=== PATIENT | male | born 1965 | race Caucasian/White ===

== ENCOUNTER 2021-10-26 22:11 | Emergency (ER) | payer SELFPAY ==
[~2021-10-26] VITALS: Ht 185.4 cm; Wt 93.6 kg
[2021-10-26 22:13] VITALS: BP 162/96
--- OUTSIDE RECORDS SUMMARY | 2021-10-26 22:16 | XMS REPORT | Clinical Summary ---
Author Author [facility] Organization [facility] Address Unknown Phone Unavailable Care Team Providers Care Steam Drier Tender Name Role Phone Lanette Newman RN Unavailable Unavailable Sb Gonzalez RN Unavailable Unavailable Eduardo Berger MD Unavailable Lai Walters MD Unavailable Gillian Ann DO [phone] Gillian Ann DO PCP Source Comments Some departments are not documenting in the electronic medical record. If you d o not see the information that you expected, contact Release of Information in [facility] Health Information Management department at [phone] for further assistan ce in locating additional records.[facility] Allergies No known active allergies Medications End Date Status Medication Sig Dispensed Refills Start Date Active SYMBICORT 160-4.5 1 mcg/actuation inhalation 9 Active VENTOLIN HFA 90 1 mcg/actuation inhaler 9 Active cholecalciferol (VITAMIN Take 1,000 0 D-3) 1,000 units tablet Units by mouth daily. Active aspirin 81 mg chewable Chew one 90 tablet 0 tabletIndications: tablet by 0 Healthcare maintenance, mouth daily. Other chest pain Take with food. Active montelukast (SINGULAIR) Take one 90 tablet 1 10 mg tablet tablet by 0 mouth at bedtime daily. Active atorvastatin (LIPITOR) 10 Take 1 tablet 90 tablet 0 mg tablet by mouth once 0 daily Active Problems Problem Noted Date Precordial pain 12/08/2019 Last Assessment & Plan: Formatting of this note might be differ ent from the original. His symptoms are not highly suggestive of cardiac ischemia but he does have risk factors and it seems certainly ana sonable to recommend a stress test. Given the frequent PVCs on the EKG yest lety I recommended the addition of an echocardiogram to more accurately as sess for any structural cardiac abnormalities. Mixed hyperlipidemia 12/08/2019 Last Assessment & Plan: Formatting of this note is different fr om the original. Lab Results Component Value Date CHOL 207 (H) 11/25/2019 TRIG 146 11/25/2019 HDL 40 (L) 11/25/2019 LDL 150 (H) 11/25/2019 VLDL 29 11/25/2019 NONHDLCHOL 167 11/25/2019 He was started on atorvastatin after lab work was done. Personal history of tobacco use 12/08/2019 Lipoma of back 04/18/2019 Immunizations Name Administration Dates Next Due Flu Vaccine =>6 Months 11/25/2019 Quadrivalent PF MMR Vaccine 03/03/1979 OPV 08/19/1979, 05/26/1977 Td Vaccine 08/19/1979, 05/26/1977 Tdap Vaccine 11/25/2019 Zoster Vaccine 11/25/2019 Recombinant, Adjuvanted (shingles) IM (vial 2 of 2)(SHINGRIX) Zoster Vaccine 11/25/2019 Recombinant, adjuvant suspension component (vial 1 of 2)(SHINGRIX) Surgical History Surgery Date Site/Laterality Comments TUMOR EXCISION 04/05/2019 Back/N/A EXCISION SUBCUT ANEOUS SOFT TISSUE TUMOR BACK - 3 CM OR MORE performed by Hayden [facility]id [facility] WOUND REPAIR 04/05/2019 Back/N/A REPAIR COMPLEX WOUND 2.6 CM TO 7.5 CM - TORSO performed by Anthony Rashid MD at [facility] Medical History Medical History Date Comments Arthritis Asthma Seasonal allergies Mixed hyperlipidemia 12/08/2019 Family History Medical History Relation Name Comments Cancer-Colon Father Diabetes Father Stroke Father Arthritis Mother Asthma Sister Relation Name Status Comments Father Mother Sister Social History Date Tobacco Use Types Packs/Day Years Used Quit: 12/02/2010 Former Smoker 3 32 Smokeless Tobacco: Former User Comments: 2-3 packs per day since age 13 . Quit 2010 Comments Alcohol Use Standard Drinks/Week No 0 (1 standard drink = 0.6 o z pure alcohol) Sex Assigned at Date Recorded Not on file Last Filed Vital Signs Reading Time Taken Comments Vital Sign 128/86 12/16/2019 11:07 AM PHYSICAL SECURITY ENGINEER Blood Pressure 82 12/09/2019 3:27 PM PHYSICAL SECURITY ENGINEER Pulse 36.3 C (97.4 F) 04/05/2019 9:45 AM CDT Temperature 16 11/25/2019 1:02 PM PHYSICAL SECURITY ENGINEER Respiratory Rate 97% 12/09/2019 3:27 PM PHYSICAL SECURITY ENGINEER Oxygen Saturation - - Inhaled Oxygen Concentration 99.3 kg (218 lb 14.7 oz) 12/16/2019 11:07 AM PHYSICAL SECURITY ENGINEER Weight 182.9 cm (6') 12/16/2019 11:07 AM PHYSICAL SECURITY ENGINEER Height 29.69 12/16/2019 11:07 AM PHYSICAL SECURITY ENGINEER Body Mass Index Plan of Treatment Health Maintenance Due Date Last Done Comments COLORECTAL CANCER 2014 SCREENING LUNG CANCER SCREENING 2019 SHINGLES RECOMBINANT 01/20/2020 11/25/2019 VACCINE (2 of 2) PHYSICAL (COMPREHENSIVE) 11/25/2020 11/25/2019, EXAM 11/25/2019 INFLUENZA VACCINE 05/26/2021 11/25/2019 DTAP/TDAP VACCINES (4 - 11/25/2029 11/25/2019, Td or Tdap) 08/19/1979, 05/26/1977 HEPATITIS C SCREENING Completed 11/25/2019 HIV SCREENING Completed 11/25/2019 Results Not on filefrom Last 3 Months Additional Health Concerns Onset Date Last Indicated Infection 10/10/2008 10/10/2008 MRSA Comment: MRSA in knee abscess 09/2008. Insurance Type Payer Benefit Subscriber ID Effective Phone Address Plan / Dates Group Indemnity [facility] [id number] 2020-P [phone] CHOICE/CHO resent ICE PLUS 66 05 [employer] Workers Self 1965 [address] (Home) [place], [place] 66 05 Advance Directives Patient Errand Runner Explanation Type Date Recorded Advance 01/09/2018 11:05 PM Directive/DPOA Care Teams Start Date End Date Steam Drier Tender Relationship Specialty 04/23/21 Gillian Ann DO PCP - [facility] [address] [place] [address] 08/26/10 Lanette Newman, THADDEUS 08/26/10 Sb Gonzalez RN 08/26/10 [place] [id number] [facility] Med Office Bld MARY ANN [address] [place] [address] 11/18/13 Lai Walters MD Emergency [address] [facility] [place] [address] 04/23/21 Gillian Ann DO CCP - Family [address] [place] [address] Care Provider
--- NOTE | 2021-10-26 22:20 | ED Dyspnea ---
General Stated Complaint: SOA History of Present Illness Date Seen by Provider: Oct 26, 2021 Time Seen by Provider: 22:14 Initial Comments 56-year-old male presents with some shortness of breath and chest tightness. Patient reports he has a history of asthma. That yesterday he started "feeling the shortness of breath coming on" the development of a runny nose. He denies any increased cough. He has inhaler that he used about 10 minutes prior to arrival. He denies any fever, chills, nausea or vomiting. Patient reports he is fully vaccinated for Covid. Patient reports that he is not sure how old his inhaler is and does not have a local physician Allergies and Home Medications Allergies Coded Allergies: No Known Drug Allergies (Unverified , 10/26/21) Patient Home Medication List Home Medication List Reviewed: Yes Review of Systems Review of Systems Constitutional: No chills, No fever Respiratory: short of breath, wheezing Cardiovascular: No chest pain, No palpitations Genitourinary: no symptoms reported Musculoskeletal: no symptoms reported Skin: no symptoms reported Psychiatric/Neurological: No Symptoms Reported Endocrine: No Symptoms Reported Physical Exam Vital Signs Vital Signs - First Documented 10/26/21 22:13 Temp 37.2 Pulse 87 Resp 20 B/P (MAP) 162/96 (118) Pulse Ox 94 O2 Delivery Room Air Capillary Refill : Height, Weight, BMI Height: '" Weight: lbs. oz. kg; BMI Method: General Appearance: No Apparent Distress Respiratory: No Accessory Muscle Use, No Respiratory Distress, Wheezing (very mild, occasional ) Cardiovascular: Regular Rate, Rhythm, No Edema Gastrointestinal: Non Tender, Soft Extremity: Normal Capillary Refill, Normal Inspection, Normal Range of Motion Neurologic/Psychiatric: Alert, Oriented x3, No Motor/Sensory Deficits Skin: Normal Color, Warm/Dry Progress/Results/Core Measures Results/Orders Lab Results Laboratory Tests Test 10/26/21 22:24 Range/Units White Blood Count 9.6 4.3-11.0 10^3/uL Red Blood Count 5.23 4.30-5.52 10^6/uL Hemoglobin 15.6 13.3-17.7 g/dL Hematocrit 47 40-54 % Mean Corpuscular Volume 90 80-99 fL Mean Corpuscular Hemoglobin 30 25-34 pg Mean Corpuscular Hemoglobin Concent 33 32-36 g/dL Red Cell Distribution Width 12.3 10.0-14.5 % Platelet Count 211 130-400 10^3/uL Mean Platelet Volume 10.6 9.0-12.2 fL Immature Granulocyte % (Auto) 0 % Neutrophils (%) (Auto) 65 42-75 % Lymphocytes (%) (Auto) 16 12-44 % Monocytes (%) (Auto) 13 H 0-12 % Eosinophils (%) (Auto) 5 0-10 % Basophils (%) (Auto) 1 0-10 % Neutrophils # (Auto) 6.3 1.8-7.8 X 10^3 Lymphocytes # (Auto) 1.5 1.0-4.0 X 10^3 Monocytes # (Auto) 1.3 H 0.0-1.0 X 10^3 Eosinophils # (Auto) 0.4 H 0.0-0.3 10^3/uL Basophils # (Auto) 0.1 0.0-0.1 10^3/uL Immature Granulocyte # (Auto) 0.0 0.0-0.1 10^3/uL Sodium Level 140 135-145 MMOL/L Potassium Level 3.6 3.6-5.0 MMOL/L Chloride Level 104 98-107 MMOL/L Carbon Dioxide Level 25 21-32 MMOL/L Anion Gap 11 5-14 MMOL/L Blood Urea Nitrogen 15 7-18 MG/DL Creatinine 0.98 0.60-1.30 MG/DL Estimat Glomerular Filtration Rate 79 BUN/Creatinine Ratio 15 Glucose Level 104 70-105 MG/DL Calcium Level 9.1 8.5-10.1 MG/DL Corrected Calcium 9.0 8.5-10.1 MG/DL Total Bilirubin 0.4 0.1-1.0 MG/DL Aspartate Amino Transf (AST/SGOT) 17 5-34 U/L Alanine Aminotransferase (ALT/SGPT) 21 0-55 U/L Alkaline Phosphatase 66 40-136 U/L C-Reactive Protein 1.25 H <0.50 MG/DL Total Protein 7.4 6.4-8.2 GM/DL Albumin 4.1 3.2-4.5 GM/DL Influenza Type A Antigen NEGATIVE NEGATIVE Influenza Type B Antigen NEGATIVE NEGATIVE My Orders Orders - AYANA YATES DO Cbc With Automated Diff (10/26/21 22:21) Comprehensive Metabolic Panel (10/26/21 22:21) Crp Fs (10/26/21 22:21) Chest 1 View Ap/Pa Only (10/26/21 22:21) Coronavirus Sars-Cov-2 So 2019 (10/26/21 22:21) Influenza A & B Antigens (10/26/21 22:21) Albuterol/Ipra Inhalation Soln (Duoneb I (10/26/21 22:30) Methylprednisolone Sod Succ (Solu-Medrol (10/26/21 22:22) Svn Small Volume Nebulizer (10/26/21 22:22) Ed Iv/Invasive Line Start (10/26/21 22:36) Medications Given in ED Current Medications Medications Dose Ordered Sig/Toño Route Start Time Stop Time Status Last Admin Dose Admin Albuterol/ Ipratropium 3 ml ONCE ONCE INH 10/26/21 22:30 10/26/21 22:31 DC 10/26/21 22:27 3 ML Vital Signs/I&O 10/26/21 22:13 Temp 37.2 Pulse 87 Resp 20 B/P (MAP) 162/96 (118) Pulse Ox 94 O2 Delivery Room Air Progress Progress Note : Progress Note Patient was feeling better following breathing treatment. Patient with no acute findings on labs, his Covid test is still pending. His x-ray does not show any acute abnormalities. Patient likely with asthma exacerbation with a viral illness. I will give him a couple days of prednisone, albuterol and Pulmicort. He should establish care with a primary care provider for further outpatient management of his asthma. Departure Impression Primary Impression: Asthma Qualified Codes: J45.909 - Unspecified asthma, uncomplicated Additional Impression: Viral upper respiratory tract infection Disposition: 01 HOME, SELF-CARE Condition: Stable Departure-Patient Inst. Referrals: NO,LOCAL PHYSICIAN (PCP/Family) Primary Care Physician Patient Instructions: Asthma, Adult ED, Viral Upper Respiratory Infection, Adult (DC) Add. Discharge Instructions: Please establish care with a primary care provider for management of your asthma Use your new prescribed albuterol inhaler every 4 hours tomorrow while awake then as needed Scripts Budesonide (Pulmicort Flexhaler) 180 Mcg Aer.pow.ba 2 PUFF IH BID, #1 EA Prov: AYANA YATES DO 10/26/21 Prednisone (Prednisone) 20 Mg Tab 40 MG PO DAILY, #6 TAB 0 Refills Prov: AYANA YATES DO 10/26/21 Albuterol Sulfate (Proventil Hfa) 6.7 Gm Hfa.aer.ad 2 PUFF INH Q6H for SHORTNESS OF BREATH, #1 EACH Prov: AYANA YATES DO 10/26/21 AYANA YATES DO Oct 26, 2021 22:20
[2021-10-26] MEDS ORDERED: methylPREDNISolone 125 MG (Solu-MEDROL) VIAL IV STA (22:22)
[2021-10-26 22:29] LABS: HEMATOCRIT 47 % (40-54); HEMOGLOBIN 15.6 g/dL (13.3-17.7); MEAN CORPUSCULAR HEMOGLOBIN 30 pg (25-34); MEAN CORPUSCULAR HGB CONC 33 g/dL (32-36); MEAN CORPUSCULAR VOLUME 90 fL (80-99); WHITE BLOOD COUNT 9.6 10^3/uL (4.3-11.0)
[2021-10-26 22:30] LABS: BASOPHILS # (AUTO) 0.1 10^3/uL (0.0-0.1); BASOPHILS % (AUTO) 1 % (0-10); EOSINOPHILS # (AUTO) 0.4 10^3/uL (0.0-0.3); EOSINOPHILS % (AUTO) 5 % (0-10); LYMPHOCYTES # (AUTO) 1.5 X 10^3 (1.0-4.0); LYMPHOCYTES % (AUTO) 16 % (12-44); MEAN PLATELET VOLUME 10.6 fL (9.0-12.2); MONOCYTES # (AUTO) 1.3 X 10^3 (0.0-1.0); MONOCYTES % (AUTO) 13 % (0-12); NEUTROPHILS # (AUTO) 6.3 X 10^3 (1.8-7.8); NEUTROPHILS % (AUTO) 65 % (42-75); PLATELET COUNT 211 10^3/uL (130-400)
[2021-10-26] MEDS ORDERED: RT-ALBUTEROL/IPRATROPIUM 3 ML (DUONEB) VIAL INH ONE (22:30)
[2021-10-26 22:44] LABS: BILIRUBIN,TOTAL 0.4 MG/DL (0.1-1.0); CALCIUM 9.1 MG/DL (8.5-10.1); CREATININE SERUM 0.98 MG/DL (0.60-1.30); POTASSIUM 3.6 MMOL/L (3.6-5.0); TOTAL PROTEIN 7.4 GM/DL (6.4-8.2)
[2021-10-26 22:45] LABS: ALBUMIN 4.1 GM/DL (3.2-4.5)
--- NOTE | 2021-10-26 22:58 | Diagnostic Imaging Report ---
HISTORY: Shortness of air. COMPARISON: None. TECHNIQUE: Frontal view of the chest. FINDINGS: Lung volumes are large. No consolidation is seen. There is no pleural effusion or pneumothorax. The cardiac silhouette is normal in size. IMPRESSION: Large lung volumes with no acute pulmonary abnormality seen. Dictated by: Dictated on workstation # [id number]
[2021-10-26] MEDS ORDERED: RT-ALBUINH INH (23:09)
[2021-10-26] MEDS ORDERED: PRD20T PO (23:09)
[2021-10-26] MEDS ORDERED: BUDE180A IH (23:09)
== END 2021-10-26 23:12 | disposition home or self-care (01) ==
LOC: ER FS 22:13
DX: J45.909 Unspecified asthma, uncomplicated (principal); J06.9 Acute upper respiratory infection, unspecified; Z20.822 Contact with and (suspected) exposure to COVID-19
CPT/HCPCS: 36415; 71045; 80053; 85025; 86141; 87635; 87804

== ENCOUNTER 2021-11-04 09:55 | Emergency (ER) | payer OTHER ==
[~2021-11-04] VITALS: Ht 185.5 cm; Wt 102.1 kg
[~2021-11-04 09:55] MED LIST: BUDE180A IH; PRD20T PO; RT-ALBUINH INH
--- NOTE | 2021-11-04 10:09 | ED Fall/Injury ---
General Stated Complaint: LT RIB INJ History of Present Illness Date Seen by Provider: Nov 04, 2021 Time Seen by Provider: 10:05 Initial Comments 56-year-old male presents with left rib injury. Patient reports he was standing there when doing a feed truck was open and took his feet out from underneath him. That he fell onto the auger. He landed on his left ribs. He also complains of some left hand tenderness. He has some mild abrasions on the left hand. Happened approximately 45 minutes to an hour prior to arrival. He reports he has pain with inspiration and is hard to take a deep breath. He denies any other injury Allergies and Home Medications Allergies Coded Allergies: No Known Drug Allergies (Unverified , 10/26/21) Patient Home Medication List Home Medication List Reviewed: Yes Albuterol Sulfate (Proventil Hfa) 6.7 Gm Hfa.aer.ad, 2 PUFF INH Q6H Prescribed by: AYANA YATES on 10/26/212308 Budesonide (Pulmicort Flexhaler) 180 Mcg Aer.pow.ba, 2 PUFF IH BID Prescribed by: AYANA YATES on 10/26/212308 Prednisone (Prednisone) 20 Mg Tab, 40 MG PO DAILY Prescribed by: AYANA YATES on 10/26/212308 Review of Systems Review of Systems Constitutional: No chills, No fever Ears, Nose, Mouth, Throat: no symptoms reported Respiratory: see HPI Cardiovascular: see HPI Gastrointestinal: no symptoms reported Genitourinary: no symptoms reported Musculoskeletal: see HPI Skin: see HPI Psychiatric/Neurological: No Symptoms Reported Past [id number] Hx Past Medical History Surgery/Hospitalization HX: Asthma Physical Exam Vital Signs Vital Signs - First Documented 11/04/21 10:00 Temp 36.9 Pulse 89 Resp 19 B/P (MAP) 180/120 (140) O2 Delivery Room Air Capillary Refill : Height, Weight, BMI Height: '" Weight: lbs. oz. kg; 27.00 BMI Method: General Appearance: mild distress HEENT: PERRL/EOMI Neck: full range of motion, supple Cardiovascular: normal peripheral pulses, regular rate, rhythm Respiratory: normal breath sounds, no respiratory distress, no accessory muscle use, other (Chest wall tenderness left lateral ribs) Gastrointestinal: non tender, no organomegaly Back: normal inspection Extremities: other (Mild tenderness to left hand but full range of motion) Neurologic/Psychiatric: survey technician II-XII nml as tested, alert, normal mood/affect, oriented x 3 Skin: other (Small abrasion left hand) Bonita Coma Score Best Eye Response: (4) Open Spontaneously Best Verbal Response: (5) Oriented Best Motor Response: (6) Obeys Commands Progress/Results/Core Measures Results/Orders My Orders Orders - TRUDYAYANA L DO Ribs/Unilateral With Chest (11/04/21 10:14) Ketorolac Injection (Toradol Injection) (11/04/21 10:57) Orphenadrine Inj (Ed Only) (Norflex Inje (11/04/21 10:57) Vital Signs/I&O 11/04/21 10:00 Temp 36.9 Pulse 89 Resp 19 B/P (MAP) 180/120 (140) O2 Delivery Room Air Progress Progress Note : Time: 11:01 Progress Note Patient with no acute fracture noted on x-ray. Patient likely left rib contusion left hand contusion. I will prescribe him some Naprosyn and Norflex. He can return to work tomorrow and work as tolerated. Patient discharged home in stable condition Diagnostic Imaging Diagonstic Imaging: Xray Plain Films/CT/US/NM/MRI: chest Comments Date of Exam:11/04/21 RIBS/UNILATERAL WITH CHEST INDICATION: Injury with chest pain. FINDINGS: No lung contusion, pneumothorax or hemothorax. There is no free air beneath the diaphragm. Cardiomediastinal and hilar contours are unremarkable. Multiple oblique views of the left ribs performed showed no displaced rib fracture deformity or suspect cortical irregularity. IMPRESSION: No acute finding at frontal chest and left rib series. Reviewed: Reviewed by Me, Reviewed/Discussed Departure Impression Primary Impression: Contusion of rib on left side Qualified Codes: S20.212A - Contusion of left front wall of thorax, initial encounter Additional Impressions: Chest wall injury Qualified Codes: S29.9XXA - Unspecified injury of thorax, initial encounter Contusion of left hand, initial encounter Disposition: HOME, SELF-CARE Condition: Stable Departure-Patient Inst. Referrals: NO,LOCAL PHYSICIAN (PCP/Family) Primary Care Physician Patient Instructions: Minor Contusion ED, Rib Fracture or Bruised Rib ED Add. Discharge Instructions: Ice for 20 minutes every 4 hours, for 2 days. Then warm moist heat 4% topical lidocaine with menthol to affected area as directed on package Follow-up with your primary care provider in 10 days if symptoms are not improving Scripts Naproxen (Naprosyn) 500 Mg Tablet 500 MG PO BID, #30 TAB 0 Refills Prov: AYANA YATES DO 11/04/21 Cyclobenzaprine HCl (Cyclobenzaprine HCl) 10 Mg Tablet 10 MG PO Q8H PRN for SPASMS, #15 TAB 0 Refills Prov: AYANA YATES DO 11/04/21 AYANA YATES DO Nov 04, 2021 10:09
--- NOTE | 2021-11-04 10:52 | Diagnostic Imaging Report ---
INDICATION: Injury with chest pain. FINDINGS: No lung contusion, pneumothorax or hemothorax. There is no free air beneath the diaphragm. Cardiomediastinal and hilar contours are unremarkable. Multiple oblique views of the left ribs performed showed no displaced rib fracture deformity or suspect cortical irregularity. IMPRESSION: No acute finding at frontal chest and left rib series. Dictated by: Dictated on workstation # [id number]
[2021-11-04] MEDS ORDERED: KETOROLAC 30 MG/ML VIAL IM STA (10:57)
[2021-11-04] MEDS ORDERED: ORPHENADRINE 60 MG/2 ML (NORFLEX) AMP (ED ONLY) IM STA (10:57)
[2021-11-04] MEDS ORDERED: NAPR-1071 PO (11:04)
[2021-11-04] MEDS ORDERED: CYCL10TA25 PO (11:04)
[2021-11-04 11:19] VITALS: BP 144/79
== END 2021-11-04 11:19 | disposition home or self-care (01) ==
LOC: EDUNIT# 09:55 → ER FS 09:57
DX: S20.212A Contusion of left front wall of thorax, initial encounter (principal); S60.222A Contusion of left hand, initial encounter; J45.909 Unspecified asthma, uncomplicated; Z79.51 Long term (current) use of inhaled steroids; Z79.52 Long term (current) use of systemic steroids; W19.XXXA Unspecified fall, initial encounter
CPT/HCPCS: 71101

== ENCOUNTER 2021-12-12 01:35 | Observation (INO) | payer OTHER ==
[~2021-12-12] VITALS: Ht 185.5 cm; Wt 92.4 kg
[2021-12-12] VITALS (11 sets, daily range): BP systolic 114–142; BP diastolic 63–93
[~2021-12-12 01:35] MED LIST changes: +CYCL10TA25 PO; +NAPR-1071 PO
[2021-12-12] MEDS ORDERED: fentaNYL INJ 100 MCG/2 ML AMP IVP STA ×2 (01:53→02:58)
[2021-12-12] MEDS ORDERED: NS IV 1000 ML 1,000 ML IV STA (01:53)
[2021-12-12] MEDS ORDERED: ONDANSETRON 4 MG/2 ML (SDV) Z0FRAN IVP STA ×2 (01:53→05:15)
--- NOTE | 2021-12-12 02:01 | ED General ---
General Stated Complaint: SWOLLEN TESTES Source of Information: Patient History of Present Illness Date Seen by Provider: Dec 12, 2021 Time Seen by Provider: 01:41 Initial Comments 56 yo male presenting with complaints of swelling into the right scrotum and testicles since yesterday. He states that overnight it got more severe so he came to the emergency department. He did try taking 800 mg of ibuprofen about 30 minutes prior to arrival in the ED. After taking the medication with some water he got nauseated. He denies any fever or chills. He denies any trauma to his abdomen. He has had no burning pain with urination but states that sometimes he has difficulty getting his urination to start. He denies any blood in his urine. He does have pain going up into the right lower quadrant. His pain symptoms started after he had lifted an axle of a vehicle. Timing/Duration: 1 Day Severity: Severe Modifying Factors: worse with Movement Associated Systoms: No Chest Pain, No Cough, No Diaphoresis, No Fever/Chills, No Headaches, No Loss of Appetite, No Malaise; Nausea/Vomiting (nauseated tonight with severe pain and taking ibuprofen but no actual emesis prior to arrival in ED); No Seizure, No Shortness of Air, No Syncope, No Weakness Allergies and Home Medications Allergies Coded Allergies: No Known Drug Allergies (Unverified , 10/26/21) Patient Home Medication List Home Medication List Reviewed: Yes Albuterol Sulfate (Proventil Hfa) 6.7 Gm Hfa.aer.ad, 2 PUFF INH Q6H Prescribed by: AYANA YATES on 10/26/212308 Budesonide (Pulmicort Flexhaler) 180 Mcg Aer.pow.ba, 2 PUFF IH BID Prescribed by: AYANA YATES on 10/26/212308 Cyclobenzaprine HCl (Cyclobenzaprine HCl) 10 Mg Tablet, 10 MG PO Q8H PRN for SPASMS Prescribed by: AYANA YATES on 11/04/211103 Naproxen (Naprosyn) 500 Mg Tablet, 500 MG PO BID Prescribed by: AYANA YATES on 11/04/211103 Prednisone (Prednisone) 20 Mg Tab, 40 MG PO DAILY Prescribed by: AYANA YATES on 10/26/212308 Review of Systems Review of Systems Constitutional: No chills, No fever EENTM: no symptoms reported Respiratory: no symptoms reported Cardiovascular: no symptoms reported Gastrointestinal: see HPI Genitourinary: see HPI, pain (pain and swelling from RLQ into groin and right scrotum/testicle) Musculoskeletal: no symptoms reported Skin: no symptoms reported Psychiatric/Neurological: Anxiety Past Sjdytih-Rrrfxq-Cqylbd Hx Patient Social History Tobacco Use?: No Past Medical History Surgery/Hospitalization HX: Asthma Physical Exam Vital Signs Vital Signs - First Documented 12/12/21 01:45 Temp 36.6 Pulse 98 Resp 14 B/P (MAP) 131/82 (98) Pulse Ox 96 O2 Delivery Room Air Capillary Refill : Height, Weight, BMI Height: '" Weight: lbs. oz. kg; 29.00 BMI Method: General Appearance: WD/WN, Anxious, Moderate Distress HEENT: PERRL/EOMI, Pharynx Normal Neck: Full Range of Motion, Non Tender, Supple Respiratory: Chest Non Tender, No Accessory Muscle Use, Wheezing Cardiovascular: Regular Rate, Rhythm, Normal Peripheral Pulses Gastrointestinal: Normal Bowel Sounds, No Pulsatile Mass, Soft, Guarding (RLQ), Hernia (right inguinal hernia), Tenderness (RLQ) Rectal: Deferred Genital/Rectal: Tenderness (with swelling into right groin/scrotum) Back: No CVA Tenderness, No Vertebral Tenderness Extremity: Normal Capillary Refill, Normal Inspection, No Pedal Edema Neurologic/Psychiatric: Alert, Oriented x3 Skin: Normal Color, Warm/Dry; No Erythema Focused Exam Lactate Level 12/12/21 02:00: Lactic Acid Level 1.03 Lactic Acid Level Laboratory Tests Test 12/12/21 02:00 Lactic Acid Level 1.03 MMOL/L (0.50-2.00) Progress/Results/Core Measures Suspected Sepsis SIRS Temperature: Pulse: Respiratory Rate: Laboratory Tests 12/12/21 02:00: White Blood Count 14.4H Blood Pressure / Mean: 12/12/21 02:00: Lactic Acid Level 1.03 Laboratory Tests 12/12/21 02:00: Platelet Count 174 12/12/21 02:30: Creatinine 0.96, Total Bilirubin 0.5 Results/Orders Lab Results Laboratory Tests Test 12/12/21 02:00 12/12/21 02:30 12/12/21 03:17 Range/Units White Blood Count 14.4 H 4.3-11.0 10^3/uL Red Blood Count 5.12 4.30-5.52 10^6/uL Hemoglobin 15.2 13.3-17.7 g/dL Hematocrit 45 40-54 % Mean Corpuscular Volume 88 80-99 fL Mean Corpuscular Hemoglobin 30 25-34 pg Mean Corpuscular Hemoglobin Concent 34 32-36 g/dL Red Cell Distribution Width 12.3 10.0-14.5 % Platelet Count 174 130-400 10^3/uL Mean Platelet Volume 11.0 9.0-12.2 fL Immature Granulocyte % (Auto) 0 % Neutrophils (%) (Auto) 78 H 42-75 % Lymphocytes (%) (Auto) 10 L 12-44 % Monocytes (%) (Auto) 9 0-12 % Eosinophils (%) (Auto) 2 0-10 % Basophils (%) (Auto) 1 0-10 % Neutrophils # (Auto) 11.2 H 1.8-7.8 10^3/uL Lymphocytes # (Auto) 1.4 1.0-4.0 10^3/uL Monocytes # (Auto) 1.2 H 0.0-1.0 10^3/uL Eosinophils # (Auto) 0.3 0.0-0.3 10^3/uL Basophils # (Auto) 0.1 0.0-0.1 10^3/uL Immature Granulocyte # (Auto) 0.1 0.0-0.1 10^3/uL Neutrophils % (Manual) 82 % Lymphocytes % (Manual) 12 % Monocytes % (Manual) 5 % Eosinophils % (Manual) 1 % Platelet Estimate FEW GIANTS SEEN Poikilocytosis SLIGHT Anisocytosis SLIGHT Lactic Acid Level 1.03 0.50-2.00 MMOL/L Lipase 27 8-78 U/L Sodium Level 139 135-145 MMOL/L Potassium Level 3.7 3.6-5.0 MMOL/L Chloride Level 101 98-107 MMOL/L Carbon Dioxide Level 24 21-32 MMOL/L Anion Gap 14 5-14 MMOL/L Blood Urea Nitrogen 19 H 7-18 MG/DL Creatinine 0.96 0.60-1.30 MG/DL Estimat Glomerular Filtration Rate 92 BUN/Creatinine Ratio 20 Glucose Level 124 H 70-105 MG/DL Calcium Level 8.8 8.5-10.1 MG/DL Corrected Calcium 8.7 8.5-10.1 MG/DL Total Bilirubin 0.5 0.1-1.0 MG/DL Aspartate Amino Transf (AST/SGOT) 20 5-34 U/L Alanine Aminotransferase (ALT/SGPT) 24 0-55 U/L Alkaline Phosphatase 69 40-136 U/L Total Protein 7.1 6.4-8.2 GM/DL Albumin 4.1 3.2-4.5 GM/DL Urine Color YELLOW Urine Clarity CLEAR Urine pH 7.0 5-9 Urine Specific [place] 1.010 L 1.016-1.022 Urine Protein NEGATIVE NEGATIVE Urine Glucose (UA) NEGATIVE NEGATIVE Urine Ketones NEGATIVE NEGATIVE Urine Nitrite NEGATIVE NEGATIVE Urine Bilirubin NEGATIVE NEGATIVE Urine Urobilinogen 2.0 < = 1.0 MG/DL Urine Leukocyte Esterase NEGATIVE NEGATIVE Urine RBC (Auto) TRACE-I H NEGATIVE Urine RBC RARE /HPF Urine WBC NONE /HPF Urine Squamous Epithelial Cells 0-2 /HPF Urine Crystals NONE /LPF Urine Bacteria NEGATIVE /HPF Urine Casts PRESENT /LPF Urine Hyaline Casts 2-5 H /LPF Urine Granular Casts 2-5 H /LPF Urine Mucus NEGATIVE /LPF Urine Culture Indicated NO My Orders Orders - MAYELIN KHAN MD Ua Culture If Indicated (12/12/21 01:45) Lipase (12/12/21 01:53) Ed Iv/Invasive Line Start (12/12/21 01:53) Cbc With Automated Diff (12/12/21 01:53) Ct Abdomen/Pelvis W (12/12/21 01:53) Ns Iv 1000 Ml (Sodium Chloride 0.9%) (12/12/21 01:53) Fentanyl Inj (Sublimaze Injection) (12/12/21 01:53) Ondansetron Injection (Zofran Injectio (12/12/21 01:53) Lactic Acid Analyzer (12/12/21 02:02) Manual Differential (12/12/21 02:00) Iohexol Injection (Omnipaque 350 Mg/Ml 1 (12/12/21 02:30) Received Contrast (Hold Metformin- Contr (12/12/21 02:30) Sodium Chloride Flush (Catheter Flush Sy (12/12/21 02:30) Ns (Ivpb) (Sodium Chloride 0.9% Ivpb Bag (12/12/21 02:30) Fentanyl Inj (Sublimaze Injection) (12/12/21 02:58) Comprehensive Metabolic Panel (12/12/21 02:58) Meropenem (Merrem 1000 Mg) (12/12/21 03:58) Lactated Ringers (Lr 1000 Ml Iv Solution (12/12/21 03:58) Meropenem (Merrem 500 Mg) (12/12/21 04:09) Morphine Injection (Morphine Injection (12/12/21 05:15) Ondansetron Injection (Zofran Injectio (12/12/21 05:15) Medications Given in ED Current Medications Medications Dose Ordered Sig/Toño Route Start Time Stop Time Status Last Admin Dose Admin Iohexol 100 ml ONCE ONCE IV 12/12/21 02:30 12/12/21 02:35 DC 12/12/21 02:46 100 ML Meropenem 500 mg STK-MED ONCE IV 12/12/21 04:09 12/12/21 04:12 DC 12/12/21 04:24 500 MG Sodium Chloride 10 ml NEEDED PRN IV 12/12/21 02:30 12/12/21 02:46 10 ML Sodium Chloride 100 ml ONCE ONCE IV 12/12/21 02:30 12/12/21 02:35 DC 12/12/21 02:46 80 ML Vital Signs/I&O 12/12/21 12/12/21 12/12/21 01:45 02:45 03:45 Temp 36.6 Pulse 98 95 115 Resp 14 14 14 B/P (MAP) 131/82 (98) 135/83 144/78 Pulse Ox 96 95 95 O2 Delivery Room Air Room Air Room Air Capillary Refill : Progress Note #1: Progress Note Patient denies any trauma or injury to cause him to have swelling and pain into the right groin and testicle area. He states this came on suddenly for yesterday. He had more severe pain overnight so he came to the ED. He denies having this happen in the past. He denies fever chills or blood in his urine. He does have swelling and apparent inguinal hernia. I was able to partially reduce with some steady gentle pressure on exam. Progress Note #2: Progress Note Labs show elevated white blood cell count of 14.4 with a left shift. He has negative lactic acid at 1.03. His chemistry appear stable. His CT scan shows findings of right inguinal hernia but he also has acute appendicitis with the appendicitis going into the inguinal hernia. Prior to receiving the CT findings I had attempted reduction of inguinal hernia with steady firm pressure to the hernia on the right. The hernia was not reduced despite having the patient medicated with 100 mcg of fentanyl. He had no vomiting but did have some nausea. Discussed findings with Dr. CHAUHAN and he recommended treating the patient with meropenem and admitting him. plan on doing the procedure later today and po ssible discharge later tonight Diagnostic Imaging Diagonstic Imaging: CT Plain Films/CT/US/NM/MRI: abdomen, pelvis Comments Impression: There is acute appendicitis. The appendix is located in the right inguinal hernia. There is diverticulosis without diverticulitis. Read by radiologist Dr. Mark Torres MD at 3 AM and faxed at 3:30 AM Reviewed: Reviewed by Me Departure Communication (Admissions) Time/Spoke to Admitting Phy: 03:[address] CHAUHAN and will admit for acute appendicitis and right inguinal hernia Impression Primary Impression: Acute appendicitis Qualified Codes: K35.30 - Acute appendicitis with localized peritonitis, without perforation or gangrene Additional Impression: Right inguinal hernia Disposition: 30 STILL A PATIENT Condition: Stable Admissions Decision to Admit Reason: Admit from ER (General) Decision to Admit/Date: Dec 12, 2021 Time/Decision to Admit Time: 03:41 Departure-Patient Inst. Referrals: NO,LOCAL PHYSICIAN (PCP/Family) Primary Care Physician MAYELIN KHAN MD Dec 12, 2021 02:01
[2021-12-12 02:21] LABS: BASOPHILS # (AUTO) 0.1 10^3/uL (0.0-0.1); BASOPHILS % (AUTO) 1 % (0-10); EOSINOPHILS # (AUTO) 0.3 10^3/uL (0.0-0.3); EOSINOPHILS % (AUTO) 2 % (0-10); HEMATOCRIT 45 % (40-54); HEMOGLOBIN 15.2 g/dL (13.3-17.7); LYMPHOCYTES # (AUTO) 1.4 10^3/uL (1.0-4.0); LYMPHOCYTES % (AUTO) 10 % (12-44); MEAN CORPUSCULAR HEMOGLOBIN 30 pg (25-34); MEAN CORPUSCULAR HGB CONC 34 g/dL (32-36); MEAN CORPUSCULAR VOLUME 88 fL (80-99); MONOCYTES # (AUTO) 1.2 10^3/uL (0.0-1.0); MONOCYTES % (AUTO) 9 % (0-12); NEUTROPHILS # (AUTO) 11.2 10^3/uL (1.8-7.8); NEUTROPHILS % (AUTO) 78 % (42-75); PLATELET COUNT 174 10^3/uL (130-400); WHITE BLOOD COUNT 14.4 10^3/uL (4.3-11.0)
[2021-12-12] MEDS ORDERED: HOLD METFORMIN - RECEIVED CONTRAST 20 ML VIAL IV SCH (02:30)
[2021-12-12] MEDS ORDERED: CATHETER FLUSH 10 ML SYR IV PRN (02:30)
[2021-12-12] MEDS ORDERED: NS 100 ML (IVPB) BAG IV ONE (02:30)
[2021-12-12] MEDS ORDERED: IOHEXOL 350 MG/ML 150 ML (OMNIPAQUE 350) VIAL IV ONE (02:30)
[2021-12-12 02:36] LABS: EOSINOPHILS % (MANUAL) 1 %; LYMPHOCYTES % (MANUAL) 12 %; MONOCYTES % (MANUAL) 5 %; NEUTROPHILS % (MANUAL) 82 %
[2021-12-12 02:37] LABS: ANISOCYTOSIS SLIGHT; PLATELET ESTIMATE FEW GIANTS SEEN; POIKILOCYTOSIS SLIGHT
[2021-12-12 03:20] LABS: ALBUMIN 4.1 GM/DL (3.2-4.5); BILIRUBIN,TOTAL 0.5 MG/DL (0.1-1.0); CALCIUM 8.8 MG/DL (8.5-10.1); CREATININE SERUM 0.96 MG/DL (0.60-1.30); POTASSIUM 3.7 MMOL/L (3.6-5.0); TOTAL PROTEIN 7.1 GM/DL (6.4-8.2)
[2021-12-12 03:31] LABS: BILIRUBIN,URINE NEGATIVE (NEGATIVE); CLARITY,URINE CLEAR; COLOR,URINE YELLOW; GLUCOSE, URINE (UA) NEGATIVE (NEGATIVE); KETONES,URINE NEGATIVE (NEGATIVE); LEUKOCYTE ESTERASE ,URINE NEGATIVE (NEGATIVE); NITRITE,URINE NEGATIVE (NEGATIVE); PROTEIN,URINE NEGATIVE (NEGATIVE)
[2021-12-12 03:39] LABS: BACTERIA,URINE NEGATIVE /HPF; RBC,URINE RARE /HPF; SQUAMOUS EPITHELIAL CELL,UR 0-2 /HPF
[2021-12-12] MEDS ORDERED: LACTATED RINGERS 1,000 ML IV STA (03:58)
[2021-12-12] MEDS ORDERED: MEROPENEM 1,000 MG in NS (IVPB) 100 ML IV STA (03:58)
[2021-12-12] MEDS ORDERED: MEROPENEM 500 MG VIAL (MERREM) IV ONE (04:09)
[2021-12-12] MEDS ORDERED: morphine INJ 10 MG/ML 1ML (SYR OR VIAL) IVP STA (05:15)
--- NOTE | 2021-12-12 07:17 | Diagnostic Imaging Report ---
PROCEDURE: CT abdomen and pelvis with contrast. TECHNIQUE: Multiple contiguous axial images were obtained through the abdomen and pelvis after administration of intravenous contrast. Auto Exposure Controls were utilized during the CT exam to meet ALARA standards for radiation dose reduction. All CT scans use one or more of the following dose optimizing techniques: automated exposure control, MA and/or KvP adjustment based on patient size and exam type or iterative reconstruction. INDICATION: Right lower quadrant pain. FINDINGS: There is some minimal scarring or atelectasis in left lung base. Heart size is normal. Liver is normal in size without focal lesions. Gallbladder is contracted. No biliary duct dilatation. Spleen is normal. Pancreas and adrenal glands are unremarkable. Kidneys normal in appearance. Aorta is nonaneurysmal. The appendix is located in the right inguinal canal and is inflamed compatible with acute appendicitis. There is diverticular disease without evidence of diverticulitis. There is also some questionable bladder wall thickening. There is marked enlargement of the prostate. There are mild degenerative changes in the spine. IMPRESSION: Acute appendicitis. The appendix is located in the right inguinal hernia. Diverticular disease without diverticulitis. Some questionable bladder wall thickening. Recommend clinical correlation for cystitis. Dictated by: Dictated on workstation # [id number]
[2021-12-12] MEDS: LACTATED RINGERS 1,000 ML IV SCH ×3 (07:51→23:30)
[2021-12-12] MEDS ORDERED: morphine INJ 4 MG/ML 1 ML (VIAL/SYRINGE) IVP PRN (08:00)
[2021-12-12] MEDS ORDERED: FLU QUADRIvalent (3YOA+) 60 mcg/0.5 ml 2021-22(AFLURIA) IM ONE (08:30)
[2021-12-12] MEDS ORDERED: CETI10TA17 PO (09:32)
[2021-12-12] MEDS ORDERED: IBUP-2185 PO (09:32)
[2021-12-12] MEDS ORDERED: ACET-2267 PO (09:32)
[2021-12-12] MEDS ORDERED: CHOL200074 PO (09:32)
--- NOTE | 2021-12-12 10:53 | Progress Note-Pre Operative ---
Pre-Operative Progress Note H&P Reviewed The H&P was reviewed, patient examined and no changes noted. Date Seen by Provider: Dec 12, 2021 Time Seen by Provider: 10:00 Date H&P Reviewed: Dec 12, 2021 Time H&P Reviewed: 10:00 Pre-Operative Diagnosis: incarcerated right ing hernia with appendicitis KATHERINE CHAUHAN MD Dec 12, 2021 10:53
[2021-12-12] MEDS ORDERED: LIDOCAINE/EPI 1%-1:200,000 (XYLOCAINE) 30 ML VIAL ONE (11:11)
--- NOTE | 2021-12-12 11:12 | HISTORY AND PHYSICAL ---
DATE OF SERVICE: HISTORY OF PRESENT ILLNESS: The patient is a 56-year-old male, who presented to [facility] with right scrotal swelling that started the day previous. He stated that the pain increased over the time. Upon examination, he was found to have an inguinal hernia, which was painful to palpation. A CT scan was then performed, which did show the right-sided inguinal hernia; however, contents within the hernia sac included the appendix with inflammation of the appendix, likely indicating early acute appendicitis. He did not report any fever, no chills as well as no nausea and no vomiting. PAST MEDICAL HISTORY: Asthma and anxiety. PAST SURGICAL HISTORY: None. ALLERGIES: No known drug allergies. MEDICATIONS: 1. Albuterol two puffs q.6 hours p.r.n. 2. Budesonide inhaler 180 mcg two puffs b.i.d. 3. Cyclobenzaprine 10 mg q.8 hours p.r.n. 4. Prednisone 40 mg daily 5. Naproxen b.i.d. SOCIAL HISTORY: Negative smoke and negative alcohol. FAMILY HISTORY: Noncontributory. REVIEW OF SYSTEMS: A well-nourished male currently in no acute distress. He is not experiencing any shortness of breath or difficulty in breathing. No chest pain, palpitations, diaphoresis. No nausea, vomiting, no diarrhea or constipation. No red blood per rectum, no dark tarry stools. No fever, chills, and no recent inadvertent weight loss. All other review of systems negative. PHYSICAL EXAMINATION: VITAL SIGNS: Temperature is 36.6, blood pressure 131/82, pulse 98, respirations 14, and pulse ox 96% on room air. CHEST: Scattered wheezes bilaterally. HEART: Regular and no murmurs. EXTREMITIES: No lower extremity edema and negative Homans sign. HEENT: No scleral icterus. NECK: No cervical lymphadenopathy. ABDOMEN: Soft and nondistended. There is pain in the right lower abdominal quadrant with an incarcerated right inguinal hernia, no overlying redness or erythema. SKIN: Warm and dry. LABORATORY DATA: WBC 14.4, hemoglobin 15.2, hematocrit 45, platelets 174, BUN 19, and creatinine 0.96. ASSESSMENT AND PLAN: A 56-year-old male with an incarcerated right inguinal hernia with hernia contents including the appendix, which appears to be with inflammation consistent with an early appendicitis. We will proceed with a diagnostic laparoscopy, reduction of the hernia, and appendectomy as well as repair of the inguinal hernia. Job ID: [id number] DocumentID: [id number] Dictated Date: 12/12/2021 10:51:16 Social Work Job Titles Date: 12/12/2021 11:11:45 Dictated By: KATHERINE CHAUHAN MD
[2021-12-12] MEDS ORDERED: ONDANSETRON 4 MG/2 ML (SDV) Z0FRAN IVP PRN ×3 (12:00→19:45)
[2021-12-12] MEDS ORDERED: ONDANSETRON 4 MG/2 ML (SDV) Z0FRAN ONE (12:15)
[2021-12-12] MEDS ORDERED: LIDOCAINE PF 2% 5 ML (XYLOCAINE) VIAL ONE (12:15)
[2021-12-12] MEDS ORDERED: fentaNYL INJ 100 MCG/2 ML AMP ONE (12:15)
[2021-12-12] MEDS ORDERED: SEVOFLURANE (ULTANE) 15 ML INHAL SOLN ONE ×2 (12:15→14:22)
[2021-12-12] MEDS ORDERED: proPOfol 200 MG/20 ML (DIPRIVAN) VIAL IV ONE (12:15)
[2021-12-12] MEDS ORDERED: MIDAZOLAM 2 MG/2 ML (VERSED) VIAL ONE (12:16)
[2021-12-12] MEDS ORDERED: ceFAZolin 2 GM IV Premixed 50 ML IV ONE (12:45)
[2021-12-12] MEDS ORDERED: ceFAZolin 2 GM IV Premixed 50 ML ONE (12:45)
[2021-12-12] MEDS ORDERED: LACTATED RINGERS 1,000 ML IV PRN (12:45)
[2021-12-12] MEDS ORDERED: MEROPENEM 1,000 MG/NS 100 ML IVPB IV SCH ×2 (13:00)
[2021-12-12] MEDS ORDERED: HYDR-3817 PO (13:22)
--- NOTE | 2021-12-12 13:22 | Discharge Inst-Surgical ---
D/C Lap Instructions-KIDO Reconcile Patient Problems Problems Reviewed?: Yes New, Converted, or Re-Newed RX: RX on Chart Follow Up Appt in 2 weeks Activity as tolerated No driving for 24 hours No driving while on pain medications Incentive Spirometry use every 2 hours while awake Regular Diet Symptoms to Report: Fever over 101 degree F, Nausea/Vomiting Infection Signs and Symptoms to report: Increased redness, Foul odor of wound, Increased drainage Bathing instructions: May shower Operative Area Clean/Dry; Keep incision clean/dry If any problems/questions: Contact your physician or go to Emergency Room STEPHY RIVERA APRN Dec 12, 2021 13:22
[2021-12-12] MEDS ORDERED: PHENYLEPHRINE 100 MCG/ML 10 ML (ANESTHESIA) SYR ONE (13:36)
[2021-12-12] MEDS ORDERED: SUCCINYLCHOLINE INJ 20 MG/1 ML 10 ML VIAL ONE (13:41)
[2021-12-12] MEDS ORDERED: HYDROmorphone 2 MG/ML VIAL (DILAUDID) ONE (14:00)
[2021-12-12] MEDS ORDERED: ROCURONIUM 50 MG/5 ML (ZEMURON) VIAL IV ONE (14:22)
[2021-12-12] MEDS ORDERED: morphine INJ 10 MG/ML 1ML (SYR OR VIAL) IVP ONE (14:30)
[2021-12-12] MEDS ORDERED: HYDROmorphone 2 MG/ML VIAL (DILAUDID) IV ONE (14:30)
--- NOTE | 2021-12-12 14:34 | Progress Note-Post Operative ---
Post-Operative Progess Note Surgeon (s)/Redevelopment Specialist (s) Surgeon KATHERINE CHAUHAN MD Redevelopment Specialist: nicole moore WRAPPER OPERATOR Pre-Operative Diagnosis incarcerated right ing hernia with appendicitis Post-Operative Diagnosis same Procedure & Operative Findings Date of Procedure 12/12/21 Procedure Performed/Findings laparoscopic right inguinal hernia repair with mesh and appendectomy. Anesthesia Type get Estimated Blood Loss Estimated blood loss (mL): minimal Specimens/Packing Specimens Removed appendix KATHERINE CHAUHAN MD Dec 12, 2021 14:34
--- NOTE | 2021-12-12 15:12 | Anesthesia-General Post-Op ---
General Patient Condition Mental Status/LOC: Same as Preop Cardiovascular: Satisfactory Nausea/Vomiting: Absent Respiratory: Satisfactory Pain: Controlled Complications: Absent Post Op Complications Complications None Follow Up Care/Instructions Patient Instructions None needed. Anesthesia/Patient Condition Patient Condition Patient is doing well, no complaints, stable vital signs, no apparent adverse anesthesia problems. KWASI VERGARA DO Dec 12, 2021 15:12
[2021-12-12] MEDS: MEROPENEM 1,000 MG/NS 100 ML IVPB IV SCH ×2 (16:48)
--- NOTE | 2021-12-12 19:10 | OPERATIVE REPORT ---
DATE OF SERVICE: 12/12/2021 PREOPERATIVE DIAGNOSES: Incarcerated right inguinal hernia and acute appendicitis. POSTOPERATIVE DIAGNOSES: Incarcerated right inguinal hernia and acute appendicitis. No perforation. PROCEDURE: Laparoscopic incarcerated right inguinal hernia repair with mesh, laparoscopic appendectomy. SURGEON: Katherine Chauhan MD ANESTHESIA: General endotracheal. ESTIMATED BLOOD LOSS: Minimal. FINDINGS: Same as postoperative diagnoses. DISPOSITION: The patient tolerated the procedure well. INDICATIONS: The patient is a 56-year-old male who presented to [facility] with right scrotal swelling. This started the day previous. He stated that over time, the pain increased. On examination, he was found to have an inguinal hernia, which was incarcerated and painful to palpation. A CT scan was then performed, which showed a right-sided inguinal hernia with incarcerated appendix and inflammation of the appendix consistent with an appendicitis. He did not report any fever, no chills at home and was otherwise eating and drinking and having normal bowel function. DESCRIPTION OF PROCEDURE: The patient was brought to the operating room, laid supine on the table. After adequate IV pain and sedative medications and general endotracheal intubation, the abdomen was prepped and draped in standard surgical fashion. A 0.5% Marcaine with epinephrine was then used to anesthetize overlying skin in the infraumbilical rim and a transverse skin incision made using 15 blade. Sharp towel clamp was used to retract the abdominal wall anteriorly and a Veress needle inserted with a low opening pressure of 0 mmHg and the abdomen was then insufflated to 15 mmHg pressure. The Veress needle removed and a 10 mm XL trocar placed followed by a 10 mm 45-degree angle laparoscope visualizing the peritoneal cavity. A 4-quadrant abdominal exploration was performed. There was an incarcerated right inguinal hernia with inflamed appendix within the hernia sac. No perforation. This was reduced under direct visualization. There was no left inguinal hernia component. We first proceeded with copious irrigation of the right lower abdominal quadrant and suctioned this out. We then opened the peritoneal lining, starting laterally towards the conjoined tendon and inguinal ligament using the Sonicision. We then proceeded medially until Aleksander's ligament was identified. We then proceeded with our inferior dissection encompassing the entire hernia sac. The cord and its surrounding contents identified and spared throughout the process. Good hemostasis was observed. A medium size 3DMax polypropylene mesh was then placed into the defect and tacked to Aleksander's ligament medially with absorbable tacks and laterally towards conjoined tendon and inguinal ligament. The peritoneal lining was then placed over the mesh and a few absorbable tacks placed to hold this in place with visualization of good hemostasis. We then proceeded with the appendectomy. The appendix and the mesoappendix were then taken using a THEA 45 mm stapler with a 2.5 mm thickness staple load and two separate segments with visualization of good hemostasis. The appendix was removed through the 10 mm port site using an EndoCatch bag and the area was then copiously irrigated and suctioned out. The 10 mm port site fascia and peritoneum were then closed under direct visualization using a Christofer-Kristin device and 0 Vicryl suture. Abdomen was desufflated and the remaining ports removed. All skin incisions were closed using 4-0 Monocryl running subcuticular sutures. Wounds were then cleaned and covered with Dermabond. The patient tolerated the procedure well. We will start IV normal pain medication as well as a clear liquid diet. Once he is tolerating clears, has good pain control with oral pain medication and is ambulating well. We will discharge him home where he will be instructed to do no heavy lifting or exertion for the next two weeks. Job ID: [id number] DocumentID: [id number] Dictated Date: 12/12/2021 14:39:52 Sandwich Counter Attendant Date: 12/12/2021 19:10:02 Dictated By: KATHERINE CHAUHAN MD
[2021-12-12] MEDS ORDERED: HYDROcodone/APAP 7.5 MG/325 MG (LORTAB, LORCET PLUS) TABLET PO PRN (19:45)
[2021-12-12] MEDS ORDERED: PROMETHAZINE INJ 25 MG/ML (PHENERGAN) AMP IVP PRN (19:45)
[2021-12-13] MEDS: MEROPENEM 1,000 MG/NS 100 ML IVPB IV SCH ×4 (00:45→08:41)
[2021-12-13 00:59] VITALS: BP 133/76
[2021-12-13 04:03] VITALS: BP 131/77
[2021-12-13 08:00] VITALS: BP 128/75
--- NOTE | 2021-12-13 11:12 | Progress Note ---
Subjective Date Seen by a Provider: Dec 13, 2021 Time Seen by a Provider: 10:00 Subjective/Events-last exam doing ok. tolerating diet. no fever/chills. pain controlled. Focused Exam Lactate Level 12/12/21 02:00: Lactic Acid Level 1.03 Objective Exam Vital Signs Date Time Temp Pulse Resp B/P (MAP) Pulse Ox O2 Delivery O2 Flow Rate FiO2 12/13/21 08:00 37.1 95 16 128/75 (92) 98 Room Air 12/13/21 08:00 95 Room Air 12/13/21 04:03 37.3 92 18 131/77 (95) 97 Room Air 12/13/21 00:59 37.4 82 18 133/76 (95) 95 Room Air 12/12/21 21:52 94 Room Air 12/12/21 20:58 95 Room Air 12/12/21 20:30 36.0 93 16 137/81 (99) 92 Room Air 12/12/21 16:37 36.6 86 16 114/63 (80) 94 Nasal Cannula 2.00 12/12/21 15:45 37.3 11 139/80 (99) 95 Nasal Cannula 3 12/12/21 15:43 Nasal Cannula 3 12/12/21 15:40 37.3 13 142/93 (109) 95 Nasal Cannula 3 12/12/21 15:34 Nasal Cannula 3 12/12/21 15:30 12 133/82 (99) 96 Nasal Cannula 38 12/12/21 15:25 Nasal Cannula 3 12/12/21 15:20 10 128/80 (96) 94 Nasal Cannula 3 12/12/21 15:10 OxyMask 8 12/12/21 15:10 21 134/89 (104) 94 OxyMask 8 12/12/21 15:00 24 136/86 (103) 96 OxyMask 8 12/12/21 14:54 OxyMask 8 12/12/21 14:54 36.5 16 142/84 (103) 99 OxyMask 8 12/12/21 11:21 38.0 106 18 123/70 (87) 94 Room Air I & O 12/13/21 06:59 Intake Total 2600 ml Output Total 1900 ml Balance 700 ml Capillary Refill : Less Than 3 SecondsLess Than 3 Seconds General Appearance: No Apparent Distress HEENT: PERRL/EOMI Neck: Full Range of Motion Respiratory: Chest Non Tender, Lungs Clear, Normal Breath Sounds Cardiovascular: Regular Rate, Rhythm Gastrointestinal: normal bowel sounds, soft, tenderness Extremity: Normal Capillary Refill Neurologic/Psychiatric: Alert, Oriented x3 Skin: Normal Color Lymphatic: No Adenopathy Assessment/Plan Assessment/Plan Assess & Plan/Chief Complaint s/p laparoscopic right ing hernia repair and appendectomy. ambulate. diet as tolerated. home soon with abx for UTI KATHERINE CHAUHAN MD Dec 13, 2021 11:12
[2021-12-13 14:23] VITALS: BP 128/75
== END 2021-12-13 12:30 | disposition home or self-care (01) ==
LOC: EDUNIT# 01:35 → ER FS 01:36 → 4TH 07:05
PROVIDERS: ADMIT Surgery; ATTEND Surgery
DX: K35.80 Unspecified acute appendicitis (principal); K40.30 Unilateral inguinal hernia, with obstruction, without gangrene, not specified as recurrent
CPT/HCPCS: 36415; 44979; 49650; 74177; 80053; 81000; 83605; 83690; 85007; 85027; 94760; 96374; 96375; 96376; 99284; C1781

== ENCOUNTER 2022-01-16 20:09 | Emergency (ER) | payer SELFPAY ==
[~2022-01-16 20:09] MED LIST changes: +ACET-2267 PO; +CETI10TA17 PO; +CHOL200074 PO; +HYDR-3817 PO; +IBUP-2185 PO
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
[2022-01-16] MEDS: RT-ALBUTEROL/IPRATROPIUM 3 ML (DUONEB) VIAL IH ONE (20:29)
[2022-01-16] MEDS: LACTATED RINGERS 1,000 ML IV STA (20:30)
[2022-01-16 20:31] LABS: BASOPHILS # (AUTO) 0.2 10^3/uL (0.0-0.1); BASOPHILS % (AUTO) 2 % (0-10); EOSINOPHILS # (AUTO) 1.1 10^3/uL (0.0-0.3); EOSINOPHILS % (AUTO) 12 % (0-10); HEMATOCRIT 46 % (40-54); HEMOGLOBIN 15.3 g/dL (13.3-17.7); LYMPHOCYTES # (AUTO) 2.9 10^3/uL (1.0-4.0); LYMPHOCYTES % (AUTO) 33 % (12-44); MEAN CORPUSCULAR HEMOGLOBIN 29 pg (25-34); MEAN CORPUSCULAR HGB CONC 33 g/dL (32-36); MEAN CORPUSCULAR VOLUME 87 fL (80-99); MEAN PLATELET VOLUME 10.6 fL (9.0-12.2); MONOCYTES # (AUTO) 0.8 10^3/uL (0.0-1.0); MONOCYTES % (AUTO) 8 % (0-12); NEUTROPHILS % (AUTO) 45 % (42-75); PLATELET COUNT 211 10^3/uL (130-400); WHITE BLOOD COUNT 8.9 10^3/uL (4.3-11.0)
[2022-01-16] MEDS: methylPREDNISolone 125 MG (Solu-MEDROL) VIAL IVP ONE (20:31)
[2022-01-16] MEDS: MAGNESIUM 1 GM/100 ML IVPB 100 ML IV STA (20:36)
--- NOTE | 2022-01-16 20:39 | Diagnostic Imaging Report ---
EXAMINATION: Chest 1 view. HISTORY: Shortness of breath. COMPARISON: 10/26/2021. FINDINGS: The lungs are clear without edema or pneumonia. No pleural effusion or pneumothorax. Heart size is normal. IMPRESSION: Clear lungs. Dictated by: Dictated on workstation # [id number]
[2022-01-16 20:52] LABS: ABG PH 7.46 (7.37-7.43)
[2022-01-16 20:53] LABS: ABG BASE EXCESS 4.2 MMOL/L (-2.5-2.5); ABG OXYGEN SATURATION 92 % (94-100); ABG PCO2 40 MMHG (35-45); ABG PO2 60 MMHG (79-93); ABG TCO2 29.6 MMOL/L (21.0-31.0); VENTILATOR NO
[2022-01-16 20:55] LABS: CALCIUM 9.2 MG/DL (8.5-10.1); CREATININE SERUM 1.14 MG/DL (0.60-1.30); POTASSIUM 3.8 MMOL/L (3.6-5.0)
[2022-01-16 21:03] LABS: BAND NEUTROPHILS 1 %; BASOPHILS % (MANUAL) 2 %; EOSINOPHILS % (MANUAL) 7 %; LYMPHOCYTES % (MANUAL) 37 %; MONOCYTES % (MANUAL) 4 %; NEUTROPHILS % (MANUAL) 49 %
[2022-01-16] MEDS: RT-ALBUTEROL/IPRATROPIUM 3 ML (DUONEB) VIAL INH ONE (21:25)
[2022-01-16] MEDS ORDERED: FLT4413 IH (21:32)
[2022-01-16 21:37] VITALS: BP 146/91
== END 2022-01-16 21:42 | disposition home or self-care (01) ==
LOC: EDUNIT# 20:09 → ER FS 20:12
DX: J45.901 Unspecified asthma with (acute) exacerbation (principal); Z20.822 Contact with and (suspected) exposure to COVID-19
CPT/HCPCS: 36415; 71045; 80048; 82805; 85007; 85027; 87636; 87804; 93005; 93041

== ENCOUNTER 2022-01-19 19:11 | Inpatient (IN) | payer SELFPAY ==
[~2022-01-19] VITALS: Ht 185.4 cm; Wt 89.2 kg
[~2022-01-19 19:11] MED LIST changes: +FLT4413 IH
[2022-01-19] MEDS ORDERED: methylPREDNISolone 125 MG (Solu-MEDROL) VIAL IV STA (19:20)
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
[2022-01-19 19:28] LABS: BASOPHILS # (AUTO) 0.1 10^3/uL (0.0-0.1); BASOPHILS % (AUTO) 1 % (0-10); EOSINOPHILS # (AUTO) 1.5 10^3/uL (0.0-0.3); EOSINOPHILS % (AUTO) 15 % (0-10); HEMATOCRIT 50 % (40-54); HEMOGLOBIN 16.4 g/dL (13.3-17.7); LYMPHOCYTES # (AUTO) 2.1 10^3/uL (1.0-4.0); LYMPHOCYTES % (AUTO) 21 % (12-44); MEAN CORPUSCULAR HEMOGLOBIN 29 pg (25-34); MEAN CORPUSCULAR HGB CONC 33 g/dL (32-36); MEAN CORPUSCULAR VOLUME 88 fL (80-99); MEAN PLATELET VOLUME 10.4 fL (9.0-12.2); MONOCYTES # (AUTO) 0.9 10^3/uL (0.0-1.0); MONOCYTES % (AUTO) 9 % (0-12); NEUTROPHILS # (AUTO) 5.2 10^3/uL (1.8-7.8); NEUTROPHILS % (AUTO) 53 % (42-75); PLATELET COUNT 189 10^3/uL (130-400); WHITE BLOOD COUNT 9.8 10^3/uL (4.3-11.0)
[2022-01-19] MEDS ORDERED: NS IV 1000 ML 1,000 ML IV SCH (19:30)
[2022-01-19] MEDS ORDERED: RT-ALBUTEROL/IPRATROPIUM 3 ML (DUONEB) VIAL IH ONE (19:30)
[2022-01-19] MEDS ORDERED: MAGNESIUM 1 GM/100 ML IVPB 100 ML IV STA (19:42)
[2022-01-19] MEDS ORDERED: RT-ALBUTEROL/IPRATROPIUM 3 ML (DUONEB) VIAL ONE (19:42)
[2022-01-19 19:43] LABS: POTASSIUM 3.8 MMOL/L (3.6-5.0)
[2022-01-19 19:44] LABS: ALBUMIN 4.5 GM/DL (3.2-4.5); BILIRUBIN,TOTAL 0.8 MG/DL (0.1-1.0); CALCIUM 9.4 MG/DL (8.5-10.1); CREATININE SERUM 0.88 MG/DL (0.60-1.30); TOTAL PROTEIN 7.7 GM/DL (6.4-8.2)
--- NOTE | 2022-01-19 19:44 | Diagnostic Imaging Report ---
EXAMINATION: Chest 2 view. HISTORY: Shortness of breath. Asthma. COMPARISON: 01/16/2022. FINDINGS: The lung volumes are normal. No focal consolidation is seen. No large pleural effusion or pneumothorax is seen. The cardiomediastinal silhouette is normal in size and contour. No acute osseous abnormality is seen. IMPRESSION: No acute pleuroparenchymal process. Dictated by: Dictated on workstation # [id number]
[2022-01-19] MEDS ORDERED: RT-ALBUTEROL/IPRATROPIUM 3 ML (DUONEB) VIAL INH ONE ×2 (19:45→20:45)
[2022-01-19] MEDS ORDERED: BENZONATATE 100 MG (TESSALON) CAPSULE PO PRN (22:15)
[2022-01-19] MEDS ORDERED: RT-ALBUTEROL/IPRATROPIUM 3 ML (DUONEB) VIAL IH PRN (22:15)
[2022-01-19] MEDS ORDERED: MELATONIN 3 MG TABLET PO PRN (22:15)
[2022-01-19] MEDS ORDERED: ONDANSETRON 4 MG/2 ML (SDV) Z0FRAN IV PRN (22:15)
[2022-01-19] MEDS ORDERED: ANTACID SUSP 30 ML UDC (MYLANTA) PO PRN (22:15)
[2022-01-19] MEDS ORDERED: PROCHLORPERAZINE 10 MG TAB (COMPAZINE) PO PRN (22:15)
[2022-01-20] VITALS (7 sets, daily range): BP systolic 112–150; BP diastolic 72–97
[2022-01-20] MEDS: methylPREDNISolone 125 MG (Solu-MEDROL) VIAL IV SCH ×2 (00:21→06:17)
[2022-01-20] MEDS: RT-ALBUTEROL/IPRATROPIUM 3 ML (DUONEB) VIAL IH SCH ×5 (02:25→22:00)
[2022-01-20] MEDS ORDERED: FLU QUADRIvalent (3YOA+) 60 mcg/0.5 ml 2021-22(AFLURIA) IM ONE (07:45)
--- NOTE | 2022-01-20 09:30 | Pulmonary Consultation ---
History of Present Illness History of Present Illness Date Seen by Provider: Jan 20, 2022 Time Seen by Provider: 09:25 Date of Admission History of Present Illness 56 y/o M with PMH significant for asthma admitted for SOB. Pulmonary consulted for asthma exacerbation. In ED started on neb treatments X 3 and steroids and transferred to cardiac stepdown. Initially on 3L now down to 2L. This morning patient with no new complaints States previously seen in ED for asthma exacerbation in October. Currently on flovent and albuterol. Feels his breathing was probably worsened by weather but is atypical for him. Patient denies fever, sick contacts, recent Covid, URI symptoms, cough, chest pain. Allergies and Home Medications Allergies Coded Allergies: No Known Drug Allergies (Unverified , 10/26/21) Home Medications Acetaminophen 500 Mg Tablet, 1,000 MG PO Q6H PRN for PAIN-MILD (1-4), (Reported) Cetirizine HCl 10 Mg Tablet, 10 MG PO HS, (Reported) Cholecalciferol (Vitamin D3) 50 Mcg Capsule, 50 MCG PO DAILY, (Reported) Fish Oil/Dha/Epa 1 Each Capsule, 1 EACH PO HS, (Reported) Fluticasone Propionate 1 Ea Aero, 1 EA IH BID, (Reported) Ibuprofen 200 Mg Capsule, 400 MG PO Q8H PRN for PAIN-MILD (1-4), (Reported) Ipratropium/Albuterol Sulfate 3 Ml Ampul.neb, 3 ML NEB Q6H PRN for SHORTNESS OF BREATH, (Reported) Past Medical/Social/Family Hx Patient Social History Tobacco Use?: No Tobacco type used: Cigarettes Smoking Status: Former Smoker Smokeless Tobacco Frequency: Never a User Use of E-Cig and/or Vaping dev: No Substance use?: No Alcohol Use?: No Pt stated abuse/neglect: No Immunizations Up To Date Influenza Vaccine Up-to-Date: No; Not Current First/Initial COVID19 Vaccinat: 2020 Second COVID19 Vaccination Jonny: 2020 Tetanus Booster (TDap): Less Than 5 Years Current Status Advance Directives: No Communicates: Verbally Primary Language: Mozambican Preferred Spoken Language: Mozambican Sensory deficits: Vision impairment Implanted or Applied Medical D: Other Review of Systems Constitutional: no symptoms reported EENTM: see HPI Respiratory: see HPI, short of breath Cardiovascular: no symptoms reported, see HPI Gastrointestinal: no symptoms reported Genitourinary: no symptoms reported Sepsis Event Evaluation Height, Weight, BMI Height: '" Weight: lbs. oz. kg; 25.97 BMI Method: Exam Exam Patient acknowledged, consented, and participated in this virtual visit which was conducted using real time audio/video Vital Signs Date Time Temp Pulse Resp B/P (MAP) Pulse Ox O2 Delivery O2 Flow Rate FiO2 01/20/22 08:00 95 Nasal Cannula 2.00 01/20/22 07:41 36.1 96 18 150/97 (114) 97 Nasal Cannula 2.00 01/20/22 07:04 92 Nasal Cannula 4.00 01/20/22 04:00 87 19 122/86 (98) 95 Nasal Cannula 2.00 01/20/22 02:25 93 Nasal Cannula 4.00 01/20/22 00:21 90 12 142/88 (106) 94 Nasal Cannula 2.00 01/19/22 22:00 94 Nasal Cannula 3.00 01/19/22 20:49 110 22 143/92 99 Nasal Cannula 2.00 01/19/22 19:16 37.0 93 22 145/87 (106) 91 Room Air I & O 01/20/22 06:59 Intake Total 250 ml Balance 250 ml Height & Weight Height: '" Weight: lbs. oz. kg; 25.97 BMI Method: General Appearance: Mild Distress HEENT: PERRL/EOMI, Normal ENT Inspection Neck: Full Range of Motion Respiratory: Rhonci, Wheezing Cardiovascular: No Edema, Normal Peripheral Pulses, Tachycardia (mild) Capillary Refill: Less Than 3 Seconds Neurologic/Psychiatric: Alert, Oriented x3 Skin: Normal Color Lymphatic: No Adenopathy Results Lab Laboratory Tests 01/19/22 19:12 Radiology Date of Exam:01/19/22 CHEST PA/LAT (2 VIEW) EXAMINATION: Chest 2 view. HISTORY: Shortness of breath. Asthma. COMPARISON: 01/16/2022. FINDINGS: The lung volumes are normal. No focal consolidation is seen. No large pleural effusion or pneumothorax is seen. The cardiomediastinal silhouette is normal in size and contour. No acute osseous abnormality is seen. IMPRESSION: No acute pleuroparenchymal process. Assessment/Plan Assessment/Plan 56 y/o M with PMH significant for asthma admitted for SOB 2/2 asthma exacerbation. Pulmonary consulted for asthma exacerbation. -Currently on duonebs Q4. Ok to space to Q6H prn. -Continue steroids -Will need outpatient pulmonary for PFTs and asthma medication adjustment. I have discussed this patient with Dr. Christianson and agree with plan as noted ZEINA SAMSON MD Jan 20, 2022 09:30
[2022-01-20] MEDS ORDERED: ACET-2267 PO (09:46)
[2022-01-20] MEDS ORDERED: CHOL200074 PO (09:46)
[2022-01-20] MEDS ORDERED: IBUP-2185 PO (09:46)
[2022-01-20] MEDS ORDERED: FLT4413 IH (09:46)
[2022-01-20] MEDS ORDERED: FISH1CAP15 PO (09:46)
[2022-01-20] MEDS ORDERED: CETI10TA17 PO (09:46)
[2022-01-20] MEDS ORDERED: IPRA3AMP31 NEB (09:46)
[2022-01-20] MEDS ORDERED: predniSONE 20 MG TAB PO NR (10:47)
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
[2022-01-20] MEDS ORDERED: LACTATED RINGERS 500 ML IV ONE (16:15)
[2022-01-20] MEDS ORDERED: LACTATED RINGERS 1,000 ML IV ONE (16:19)
[2022-01-20] MEDS: LACTATED RINGERS 1,000 ML IV SCH ×2 (17:18→22:10)
[2022-01-20] MEDS ORDERED: CALCIUM CARBONATE 500 MG (TUMS) TAB.CHEW PO PRN (21:15)
[2022-01-20] MEDS ORDERED: DOCUSATE SODIUM 100 MG (COLACE) CAP PO PRN (21:15)
[2022-01-20] MEDS ORDERED: ALPRAZolam 0.25 MG (XANAX) TAB PO PRN (21:15)
[2022-01-20] MEDS ORDERED: MELATONIN 3 MG TABLET PO PRN (21:15)
[2022-01-20] MEDS ORDERED: ACETAMINOPHEN 325 MG TABLET PO PRN (21:15)
[2022-01-20] MEDS ORDERED: diphenhydrAMINE 25 MG TAB (BENADRYL) PO PRN (21:15)
[2022-01-21 00:17] VITALS: BP 126/84
[2022-01-21] MEDS: RT-ALBUTEROL/IPRATROPIUM 3 ML (DUONEB) VIAL IH SCH ×3 (02:45→15:21)
[2022-01-21 04:17] VITALS: BP 127/88
[2022-01-21] MEDS ORDERED: predniSONE 20 MG TAB PO SCH (07:00)
[2022-01-21 07:39] VITALS: BP 124/83
[2022-01-21] MEDS: LACTATED RINGERS 1,000 ML IV SCH (08:43)
[2022-01-21] MEDS ORDERED: SENNA W/DOCUSATE (SENOKOT S) TABLET PO SCH (09:00)
[2022-01-21 11:26] VITALS: BP 106/71
[2022-01-21] MEDS ORDERED: PRED10TA22 PO (12:12)
[2022-01-21] MEDS ORDERED: FLT11013 IH (12:12)
[2022-01-21] MEDS ORDERED: TMSL.4C PO (12:13)
[2022-01-21] MEDS ORDERED: RT-ALBUINH IH (15:33)
--- NOTE | 2022-01-21 17:24 | Discharge Summary ---
MAGNUS KAT 01/21/22 1724: Diagnosis/Chief Complaint Date of Admission Jan 19, 2022 at 21:46 Date of Discharge Jan 21, 2022 at 15:50 Discharge Date: Jan 21, 2022 Admission Diagnosis Admission Diagnosis Asthma exacerbation Discharge Diagnosis Asthma Exacerbation Urinary retention Discharge Summary Hospital Course Was the Problem List Reviewed?: Yes Hospital Course Kit is a 56yo male w/PMH of Asthma who presented to ER on 01/19 with shortness of breath, just a few days after being treated in the ER for the same thing. His O2 sat was 91 and he was admitted for IV steroids and breathing treatments. He was on 2L of oxygen via nasal cannula for the first day with O2 sats stable around 95. Today he was not wearing any oxygen, had O2 sats in the mid 90s and no shortness of breath at rest or on exertion. During his stay, he also complained of having to wake up multiple times throughout the night to urinate and has trouble starting his stream. He was started on Flomax for suspected BPH and will be establishing care with a physician in his home town of [place] for evaluation and management of that. Patient is medically stable for discharge and will begin a Prednisone taper as well as daily ICS at home. Labs Laboratory Tests 01/19/22 19:12: Red Blood Count 5.61H, Eosinophils (%) (Auto) 15H, Eosinophils # (Auto) 1.5H 01/19/22 19:27: 01/19/22 19:28: Active Scripts Active Proair Hfa (Albuterol Sulfate) 1 Puff Puff 2 Puff IH Q4H PRN 30 Days 1 PUFF = 90 MCG Flomax (Tamsulosin HCl) 0.4 Mg Cap 0.4 Mg PO DAILY 30 Days Prednisone 10 Mg Tab.ds.pk 10 Mg PO DAILY Take 6 tabs(60mg)daily,decrease by 1 tab(10MG)daily. Flovent Hfa 110 mcg (Fluticasone Propionate) 1 Ea Aero 2 Ea IH BID 30 Days Reported Fish Oil 1,200 mg Fish Oil (Fish Oil/Dha/Epa) 1 Each Capsule 1 Each PO HS Ibuprofen 200 Mg Capsule 400 Mg PO Q8H PRN Tylenol Extra Strength (Acetaminophen) 500 Mg Tablet 1,000 Mg PO Q6H PRN Cetirizine HCl 10 Mg Tablet 10 Mg PO HS Vitamin D3 (Cholecalciferol (Vitamin D3)) 50 Mcg Capsule 50 Mcg PO DAILY Iprat-Albut 0.5-3(2.5) mg/3 ml (Ipratropium/Albuterol Sulfate) 3 Ml Ampul.neb 3 Ml NEB Q6H PRN Vital Sign - Last 12Hours Date Time Temp Pulse Resp B/P (MAP) Pulse Ox O2 Delivery O2 Flow Rate FiO2 01/21/22 13:00 98 01/21/22 11:26 36.3 19 106/71 (83) 92 Room Air 01/20/22 20:00 Procedures None. Discharge Physical Examination Allergies: Coded Allergies: No Known Drug Allergies (Unverified , 10/26/21) Vitals & I&Os Vital Signs Date Time Temp Pulse Resp B/P (MAP) Pulse Ox O2 Delivery O2 Flow Rate FiO2 01/21/22 13:00 98 01/21/22 11:26 36.3 19 106/71 (83) 92 Room Air 01/20/22 20:00 General Appearance: Alert, Oriented X3 HEENT: PERRLA, EOMI Cardiovascular: Regular Rate, No Murmurs Abdominal: Normal Bowel Sounds, Soft, No Tenderness Psych/Mental Status: Mental Status NL Discharge Home Medications Reviewed and agree with Discharge Medication list on patient's Discharge Instruction sheet Instructions to Patient/Family Please see electronic discharge instructions given to patient. Clinical Quality Measures Admission Status Admission Dx Asthma exacerbation Copy Copies To 1: [facility]ALEXANDER REAGAN MD 01/21/22 1900: Discharge Summary Consultations Pulmonology Discharge Physical Examination Allergies: Coded Allergies: No Known Drug Allergies (Unverified , 10/26/21) Copy Copies To 1: [facility] Supervisory-Addendum Brief Verification & Attestation Participated in pt care: history, MDM, physical Personally performed: exam, history, MDM, supervision of care Care discussed with: Medical Student Procedures: n/a Results interpretation: Verified all documentation A medical student performed and documented this service in my presence. I reviewed and verified all information documented by the medical student and made modifications to such information, when appropriate. I personally performed the physical exam and medical decision making. MAGNUS KAT Jan 21, 2022 17:24 ALEXANDER TANG MD Jan 21, 2022 19:00
[2022-01-21] MEDS ORDERED: TAMSULOSIN 0.4 MG (FLOMAX) CAP PO SCH (18:00)
== END 2022-01-21 15:50 | disposition home or self-care (01) | DRG 203 ==
LOC: EDUNIT# 19:11 → ER FS 19:14 → CSD 21:46
PROVIDERS: ADMIT Family Medicine; ATTEND Internal Medicine
DX: J45.901 Unspecified asthma with (acute) exacerbation (principal); N40.1 Benign prostatic hyperplasia with lower urinary tract symptoms; R33.8 Other retention of urine; Z87.891 Personal history of nicotine dependence
CPT/HCPCS: 36415; 51701; 71046; 80053; 84145; 85025; 85379; 93005; 94640; 94664; 94761

== ENCOUNTER → 2022-02-11 | Outpatient (CLI) | payer OTHER ==
[~2022-02-11] MED LIST changes: +FISH1CAP15 PO; +FLT11013 IH; +IPRA3AMP31 NEB; +LORA10TA7 PO; +MONT-40 PO; +PRED10TA22 PO; +RT-ALBUINH IH; +TMSL.4C PO
--- NOTE | 2022-02-11 10:23 | Diagnostic Imaging Report ---
INDICATION: Fall and fractures. No definite displaced rib fractures detected. No parenchymal contusion, effusion or pneumothorax is seen. IMPRESSION: No displaced rib fractures detected. Dictated by: Dictated on workstation # [id number]
== END ==
LOC: RAD FS 09:39
PROVIDERS: ATTEND Nurse Practitioner Family
DX: Z87.81 Personal history of (healed) traumatic fracture (principal); Z91.81 History of falling
CPT/HCPCS: 71100

== ENCOUNTER 2022-09-04 10:40 | Emergency (ER) | payer BC, OTHER ==
[~2022-09-04] VITALS: Ht 185 cm; Wt 90.0 kg
[~2022-09-04 10:40] MED LIST changes: +ALBU8.5H6 IH; -RT-ALBUINH IH
[2022-09-04 10:49] VITALS: BP_SYST 169
[2022-09-04] MEDS ORDERED: MAGNESIUM 1 GM/100 ML IVPB 100 ML IV STA (10:51)
[2022-09-04] MEDS ORDERED: DOXYCYCLINE 100 MG (VIBRAMYCIN) TABLET PO STA (10:51)
[2022-09-04] MEDS ORDERED: cefTRIAXone 1 GM PRE-MIX 50 ML IV ONE (11:00)
[2022-09-04] MEDS ORDERED: RT-ALBUTEROL/IPRATROPIUM 3 ML (DUONEB) VIAL INH ONE (11:00)
--- NOTE | 2022-09-04 11:00 | ED Cough/URI ---
General Chief Complaint: Cough/Cold/Flu Symptoms Stated Complaint: SOB Nursing Triage Note: Patient has presented to ER with cc of cough, congestion, wheezing, some brown sputum, feels short of breath for the last 4 days. He did a breathing treatment at home at about 0630 this morning. He was seen in the urgent care and had a negative test for flu and covid and they sent him to the ER. Source: patient, RN/MD Exam Limitations: no limitations History of Present Illness Date Seen by Provider: Sep 04, 2022 Time Seen by Provider: 10:45 Initial Comments 56-year-old male with past medical history of asthma coming in due to concerns for an asthma exacerbation. The past 4 days he has had URI type symptoms with productive cough of brown sputum. No fever, chest pain, abdominal pain, nausea, vomiting, diarrhea, weakness, numbness, rash, or any other concerns. Went to the clinic and had a negative flu and COVID test. The only medicine he has for his asthma is a rescue inhaler. He was admitted to the hospital a few times within the past year including to the ICU, but is never been intubated for asthma. Allergies and Home Medications Allergies Coded Allergies: No Known Drug Allergies (Unverified , 10/26/21) Patient Home Medication List Home Medication List Reviewed: Yes Acetaminophen (Tylenol Extra Strength) 500 Mg Tablet, 1,000 MG PO Q6H PRN for PAIN-MILD (1-4), (Reported) Entered as Reported by: VIVI MCELROY on 01/20/22 0946 Albuterol Sulfate (Ventolin Hfa) 1 Puff Puff, 2 PUFF IH Q4H PRN for SHORTNESS OF BREATH, (Reported) Entered as Reported by: VIVI MCELROY on 01/31/22 1045 Albuterol Sulfate (Albuterol Sulfate) 2.5 Mg/3 Ml (0.083 %) Vial.neb, 2.5 MG INH Q4H PRN for WHEEZING Prescribed by: TIO ZAPATA on 09/04/22 1111 Budesonide/Formoterol Fumarate (Budesonide-Formoterol 80-4.5) 80 Mcg-4.5 Mcg/Actuation Hfa.aer.ad, 2 PUFF IH BID Prescribed by: TIO ZAPATA on 09/04/22 1109 Cholecalciferol (Vitamin D3) (Vitamin D3) 50 Mcg Capsule, 50 MCG PO DAILY, (Reported) Entered as Reported by: VIVI MCELROY on 01/20/22 09 Doxycycline Hyclate (Doxycycline Hyclate) 100 Mg Tablet, 100 MG PO BID Prescribed by: TIO ZAPATA on 09/04/22 110 Fish Oil/Dha/Epa (Fish Oil 1,200 mg Fish Oil) 1 Each Capsule, 1 EACH PO HS, (Reported) Entered as Reported by: VIVI MCELROY on 01/20/22 09 Fluticasone Propionate (Flovent Hfa 110 mcg) 1 Ea Aero, 1 EA IH BID PRN for SHORTNESS OF BREATH, (Reported) Entered as Reported by: VIVI MCELROY on 01/31/22 104 Ipratropium/Albuterol Sulfate (Iprat-Albut 0.5-3(2.5) mg/3 ml) 3 Ml Ampul.neb, 3 ML NEB Q6H PRN for SHORTNESS OF BREATH, (Reported) Entered as Reported by: VIVI MCELROY on 01/20/22945 Loratadine (Loratadine) 10 Mg Tablet, 10 MG PO HS, (Reported) Entered as Reported by: VIVI MCELROY on 01/31/22 1016 Methylprednisolone (Methylprednisolone Dose Pack) 4 Mg Tab.ds.pk, 4 MG PO UD Prescribed by: TIO ZAPATA on 09/04/22 110 Montelukast Sodium (Montelukast Sodium) 10 Mg Tablet, 10 MG PO HS Prescribed by: BETTYE ESPANA on 02/02/22919 Prednisone (Prednisone) 10 Mg Tab.ds.pk, 10 MG PO DAILY Prescribed by: BETTYE ESPANA on 02/02/22919 Tamsulosin HCl (Flomax) 0.4 Mg Cap, 0.4 MG PO HS, (Reported) Entered as Reported by: VIVI MCELROY on 01/31/22 104 Review of Systems Review of Systems Constitutional: No fever EENTM: No blurred vision Respiratory: cough, short of breath, wheezing Cardiovascular: No chest pain Gastrointestinal: no symptoms reported Genitourinary: no symptoms reported Musculoskeletal: no symptoms reported Skin: no symptoms reported Psychiatric/Neurological: No Symptoms Reported Hematologic/Lymphatic: No Symptoms Reported Immunological/Allergic: no symptoms reported All Other Systems Reviewed Negative Unless Noted: Yes Past Solyltt-Oyefgi-Vambtq Hx Patient Social History Tobacco Use?: No Smoking Status: Former Smoker Use of E-Cig and/or Vaping dev: No Substance use?: No Alcohol Use?: No Immunizations Up To Date First/Initial COVID19 Vaccinat: 2020 Second COVID19 Vaccination Jonny: 2020 Past Medical History Surgery/Hospitalization HX: Asthma Appy Hiatal Hernia Repair Surgeries: Yes (hernia repair) Appendectomy Asthma Currently Using CPAP: No Currently Using BIPAP: No Family Medical History No Pertinent Family Hx Physical Exam Vital Signs - First Documented 09/04/22 10:49 Temp 36.3 Pulse 88 Resp 8 B/P (MAP) 169/ Pulse Ox 94 O2 Delivery Room Air Capillary Refill : NONE Height: '" Weight: lbs. oz. kg; 26.00 BMI Method: General Appearance: WD/WN, no apparent distress Eyes: Bilateral Eye Normal Inspection HEENT: PERRL/EOMI, normal ENT inspection, pharynx normal Neck: non-tender, full range of motion, supple, normal inspection Respiratory: chest non-tender, no respiratory distress, no accessory muscle use, wheezing Cardiovascular: regular rate, rhythm, no edema, no murmur Gastrointestinal: normal bowel sounds, non tender, soft; No distended, No guarding, No rebound Extremities: normal range of motion, non-tender, normal inspection, no pedal edema, no calf tenderness, normal capillary refill Neurologic/Psychiatric: no motor/sensory deficits, alert, normal mood/affect Skin: normal color, warm/dry Lymphatic: no adenopathy Progress/Results/Core Measures Suspected Sepsis SIRS Temperature: Pulse: 88 Respiratory Rate: 8 Blood Pressure 169 / Mean: Results/Orders My Orders Orders - TIO ZAPATA MD Chest 1 View Ap/Pa Only (09/04/22 10:51) Dexamethasone Injection (Decadron Injec (09/04/22 11:00) Ceftriaxone 1 Gm Pre-Mix (Rocephin 1 Gm (09/04/22 11:00) Doxycycline Hyclate Tablet (Vibramycin T (09/04/22 10:51) Magnesium 1 Gm/100 Ml Ivpb (Magnesium Arce (09/04/22 10:51) Albuterol/Ipra Inhalation Soln (Duoneb I (09/04/22 11:00) Medications Given in ED Current Medications Medications Dose Ordered Sig/Toño Route Start Time Stop Time Status Last Admin Dose Admin Albuterol/ Ipratropium 3 ml ONCE ONCE INH 09/04/22 11:00 09/04/22 11:01 DC 09/04/22 10:57 3 ML Ceftriaxone Sodium/Dextrose 50 ml @ 100 mls/hr ONCE ONCE IV 09/04/22 11:00 09/04/22 11:29 DC 09/04/22 10:57 100 MLS/HR Dexamethasone Sodium Phosphate 10 mg ONCE ONCE IV 09/04/22 11:00 09/04/22 11:01 DC 09/04/22 10:56 10 MG Vital Signs/I&O 09/04/22 10:49 Temp 36.3 Pulse 88 Resp 8 B/P (MAP) 169/ Pulse Ox 94 O2 Delivery Room Air Capillary Refill : NONE Progress Note : Progress Note 56-year-old male with above history coming in due to concerns for an asthma exacerbation. ABCs were intact and vitals were stable on presentation. His oxygen was around 94% on room air at all times, and he does not have an increased work of breathing although he does have wheezing in all lung mason. Expiratory wheezing improved significantly after a DuoNeb, but still has the expiratory wheezing. An IV was placed and he was given steroids, magnesium, ceftriaxone, and oral doxycycline for asthma exacerbation. Patient is feeling a lot better at this time. Given his multiple admissions to the hospital for asthma over the past year, he should be on some type of long-acting beta agonist and/or inhaled corticosteroid. I will start him on Symbicort on top of the antibiotics and oral steroid for the asthma exacerbation, and have him follow-up with his PCP regarding this. I believe he is stable for discharge with outpatient follow-up. He was sent home with strict return precautions Diagnostic Imaging Diagonstic Imaging: Xray Plain Films/CT/US/NM/MRI: chest Comments NAME: [facility] REC#: [id number] PT STATUS: REG ER : 1965 PHYSICIAN: TIO ZAPATA MD ADMIT DATE: 09/04/22/ER FS Draft Date of Exam:09/04/22 CHEST 1 VIEW AP/PA ONLY INDICATION: Shortness of breath. EXAMINATION: Portable chest at 11:00 a.m. FINDINGS: Heart and mediastinum are normal. Lungs are clear. There are no effusions or pneumothoraces. IMPRESSION: No acute abnormalities in the chest. Dictated on workstation # [id number] Dict: 09/04/22 1107 Trans: 09/04/22 1111 [id number] Interpreted by: SONIA KEVIN MD Electronically signed by: Departure Impression Primary Impression: Asthma exacerbation Qualified Codes: J45.41 - Moderate persistent asthma with (acute) exacerbation Disposition: HOME, SELF-CARE Condition: Stable Departure-Patient Inst. Decision time for Depature: 12:00 Referrals: YENNIFER GATICA APRN (PCP) Primary Care Physician [facility] (Family) Primary Care Physician Patient Instructions: Asthma, Adult ED Add. Discharge Instructions: You are having an asthma exacerbation. You will be on antibiotics and steroids for roughly the next week. We will start you on an inhaled steroid as well as an inhaled long-acting beta agonist. This is similar to your albuterol, but last longer. Still use your albuterol inhaler as a rescue inhaler. I recommend buying a pulse oximeter which can check your oxygen levels. If you get to 89% and cannot get it to go back up, I recommend coming back to the ER. Scripts Albuterol Sulfate (Albuterol Sulfate) 2.5 Mg/3 Ml (0.083 %) Vial.neb 2.5 MG INH Q4H PRN for WHEEZING, #50 EA 3 Refills Prov: TIO ZAPATA MD 09/04/22 Budesonide/Formoterol Fumarate (Budesonide-Formoterol 80-4.5) 80 Mcg-4.5 Mcg/Actuation Hfa.aer.ad 2 PUFF IH BID for 30 Days, #1 EA 3 Refills Prov: TIO ZAPATA MD 09/04/22 Methylprednisolone (Methylprednisolone Dose Pack) 4 Mg Tab.ds.pk 4 MG PO UD for 6 Days, #21 PKG PER DOSE PACK INSTRUCTIONS Prov: TIO ZAPATA MD 09/04/22 Doxycycline Hyclate (Doxycycline Hyclate) 100 Mg Tablet 100 MG PO BID for 7 Days, #14 TAB 0 Refills Prov: TIO ZAPATA MD 09/04/22 Work/School Note: Work Release Form Date Seen in the Emergency Department: Sep 04, 2022 Return to Work: Sep 06, 2022 Restrictions: No Restrictions TIO ZAPATA MD Sep 04, 2022 11:00
[2022-09-04] MEDS ORDERED: BUDE10.27 IH (11:09)
[2022-09-04] MEDS ORDERED: METH4TAB10 PO (11:09)
[2022-09-04] MEDS ORDERED: DOXY100T2 PO (11:09)
[2022-09-04] MEDS ORDERED: ALBU2.5V4 INH (11:11)
--- NOTE | 2022-09-04 11:12 | Diagnostic Imaging Report ---
INDICATION: Shortness of breath. EXAMINATION: Portable chest at 11:00 a.m. FINDINGS: Heart and mediastinum are normal. Lungs are clear. There are no effusions or pneumothoraces. IMPRESSION: No acute abnormalities in the chest. Dictated by: Dictated on workstation # [id number]
== END 2022-09-04 12:05 | disposition home or self-care (01) ==
LOC: EDUNIT# 10:40 → ER FS 10:41
DX: J45.901 Unspecified asthma with (acute) exacerbation (principal); Z87.891 Personal history of nicotine dependence
CPT/HCPCS: 71045

== ENCOUNTER 2023-04-08 05:38 | Outpatient (CLI) | payer BC ==
[~2023-04-08] VITALS: Ht 185.4 cm; Wt 97.2 kg
[~2023-04-08 05:38] MED LIST changes: +ALBU2.5V4 INH; +BUDE10.27 IH; +DOXY100T2 PO; +METH4TAB10 PO
[2023-04-08] MEDS ORDERED: BUDE10.22 IH (13:10)
[2023-04-08] MEDS ORDERED: FINA5TAB6 PO (13:10)
== END 2023-04-08 13:18 | disposition home or self-care (01) ==
LOC: PREOP 05:38
PROVIDERS: ATTEND Surgery
DX: Z01.818 Encounter for other preprocedural examination (principal)

== ENCOUNTER 2023-04-17 12:53 | Day surgery (SDC) | payer BC ==
[~2023-04-17] VITALS: Ht 167.6 cm; Wt 97.2 kg
[~2023-04-17 12:53] MED LIST changes: +BUDE10.22 IH; +FINA5TAB6 PO
[2023-04-17] MEDS ORDERED: LACTATED RINGERS 1,000 ML IV STA (12:55)
[2023-04-17] MEDS ORDERED: HURRICAINE EXT TUBE (BENZOCAINE) XX PRN (13:00)
[2023-04-17] MEDS ORDERED: PROPOFOL INJECTION 50 ML IV ONE (13:04)
[2023-04-17 13:15] VITALS: BP 113/86
--- NOTE | 2023-04-17 13:52 | Anesthesia-General Post-Op ---
MAC Patient Condition Mental Status/LOC: Same as Preop Cardiovascular: Satisfactory Nausea/Vomiting: Absent Respiratory: Satisfactory Pain: Controlled Complications: Absent Post Op Complications Complications None Follow Up Care/Instructions Patient Instructions None needed. Anesthesiology Discharge Order Discharge Order Patient is doing well, no complaints, stable vital signs, no apparent adverse anesthesia problems. No complications reported per nursing. KAT VELAZQUEZ CRNA Apr 17, 2023 13:52
[2023-04-17 13:55] VITALS: BP_SYST 103
[2023-04-17] MEDS ORDERED: PANT40TA2 PO (13:55)
--- NOTE | 2023-04-17 13:55 | Progress Note-Post Operative ---
Post-Operative Progess Note Surgeon (s)/Paper Handler (s) Surgeon NALDO VELASCO DO Paper Handler: na Pre-Operative Diagnosis gerd, family hx colon cancer Post-Operative Diagnosis gastritis, diverticulosis Procedure & Operative Findings Date of Procedure 04/17/23 Procedure Performed/Findings egd c biopsies, colonoscopy Anesthesia Type per wood heel fitter machine Estimated Blood Loss Estimated blood loss (mL): none Specimens/Packing Specimens Removed antrum, body, ge NALDO VELASCO DO Apr 17, 2023 13:55
--- NOTE | 2023-04-17 13:58 | Discharge Inst-Simple/Standard ---
Discharge Inst-Standard Discharge Medications New, Converted or Re-Newed RX: Transmitted to Pharmacy Patient Instructions/Follow Up Plan of Care/Instructions/FU: 2 weeks rubi Activity as Tolerated: Yes Discharge Diet: Regular Diet NALDO VELASCO DO Apr 17, 2023 13:58
[2023-04-17 14:14] VITALS: BP 102/63
[2023-04-17 14:25] VITALS: BP 103/72
--- NOTE | 2023-04-17 22:19 | OPERATIVE REPORT ---
DATE OF SERVICE: 04/17/2023 PREOPERATIVE DIAGNOSES: Family history of colon cancer, gastroesophageal reflux disease. POSTOPERATIVE DIAGNOSES: Gastritis, diverticulosis. PROCEDURES: EGD with biopsies, colonoscopy. SURGEON: Naldo Werner DO ANESTHESIA: Per SWIM INSTRUCTOR. ESTIMATED BLOOD LOSS: None. COMPLICATIONS: None. INDICATIONS: The patient is a 57-year-old male with GERD symptoms and has family history of colon cancer. He understands risks and benefits of procedure and wished to proceed. Consent was signed in chart. DESCRIPTION OF PROCEDURE: The patient was taken to endoscopy suite, placed in left lateral recumbent position. Timeout was performed. Scope was inserted in the mouth, down the esophagus, stomach and into the duodenum without difficulty. No polyps, masses or ulcerations within the duodenum. Scope was slowly retracted back into the stomach, where it was further insufflated. Gastritis appearance throughout the stomach, biopsy of the antrum was obtained. Scope was retroflexed noting no other pathology except for gastritis. Biopsy of the body was obtained. Scope was returned to its normal position, slowly withdrawn until distal esophagus. Biopsy of GE junction was obtained. No polyps, masses or ulcerations. Scope was slowly retracted back until completely removed. Digital rectal exam was performed. No palpable polyps, masses or ulcerations. [ ] enlarged prostate. Scope was inserted in the rectum all the way to the cecum with minimal difficulty. Prep was adequate. Scope was slowly retracted back. No polyps, masses or ulcerations in the cecum, ascending, transverse, descending and sigmoid colon. Sigmoid colon had moderate diverticulosis present. Once in the rectum, scope was retroflexed noting no other pathology. Scope was returned to its normal position, slowly withdrawn until completely removed. The patient tolerated the procedure well without complications, taken to recovery room in stable condition. RECOMMENDATIONS: The patient will need repeat colonoscopy in 5 years due to family history. We will start Protonix 40 mg daily. We will follow up on biopsies in a couple of weeks. Job ID: [id number] DocumentID: [id number] Dictated Date: 04/17/2023 13:58:15 Watch Assembly Inspector Date: 04/17/2023 22:18:00 Dictated By: NALDO WERNER DO
== END 2023-04-17 14:35 | disposition home or self-care (01) ==
LOC: ENDO 12:53
PROVIDERS: ATTEND Surgery
DX: Z12.11 Encounter for screening for malignant neoplasm of colon (principal); K29.50 Unspecified chronic gastritis without bleeding; B96.81 Helicobacter pylori [H. pylori] as the cause of diseases classified elsewhere; K21.00 Gastro-esophageal reflux disease with esophagitis, without bleeding; K57.30 Diverticulosis of large intestine without perforation or abscess without bleeding; N40.0 Benign prostatic hyperplasia without lower urinary tract symptoms; Z80.0 Family history of malignant neoplasm of digestive organs; Z87.891 Personal history of nicotine dependence